=== PATIENT | female | born 1975 | race Caucasian/White ===

== ENCOUNTER 2017-05-22 17:32 | Emergency (ER) | payer MEDICAID ==
[~2017-05-22] VITALS: Ht 163.8 cm; Wt 130.9 kg
[~2017-05-22 17:32] MED LIST: ALPR-623 PO; BUPR150T8 PO; BUSP10TA11 PO; ESOM20CA PO; IBUP-1984 PO; LANS15CA15 PO; LISI-222 PO; METO-292 PO; NITR100C6 PO; NYSTATIN; ONDA4TAB59 PO; PHEN-873 PO; TRAM50TA2 PO; ZOF4T PO; ZOLP10TA5 PO; ZOLP5TAB8 PO
[2017-05-22 17:50] VITALS: BP 140/83
[2017-05-22] MEDS ORDERED: IBUP-1984 PO (18:42)
[2017-05-22] MEDS ORDERED: ibuprofen tablet 400 MG TABLET PO ONE (18:45)
== END 2017-05-22 19:13 | disposition home or self-care (01) ==
LOC: ER 17:32
DX: M23.8X1 Other internal derangements of right knee (principal); I10 Essential (primary) hypertension; K21.9 Gastro-esophageal reflux disease without esophagitis; G89.29 Other chronic pain; M54.9 Dorsalgia, unspecified; Z90.49 Acquired absence of other specified parts of digestive tract; Z98.890 Other specified postprocedural states; Z79.899 Other long term (current) drug therapy; Z88.8 Allergy status to other drugs, medicaments and biological substances; Z88.5 Allergy status to narcotic agent; Z88.0 Allergy status to penicillin; Z88.2 Allergy status to sulfonamides; Z88.6 Allergy status to analgesic agent; X50.1XXA Overexertion from prolonged static or awkward postures, initial encounter; Y93.01 Activity, walking, marching and hiking; Y92.89 Other specified places as the place of occurrence of the external cause; Y99.9 Unspecified external cause status
CPT/HCPCS: 29505; 73564; 99284; A6449

== ENCOUNTER 2017-06-09 14:14 | Outpatient (CLI) | payer MEDICAID ==
[~2017-06-09 14:14] MED LIST changes: +ONDA4TAB6 PO
[2017-06-09 14:16] VITALS: BP 127/76
== END 2017-06-09 15:11 | disposition home or self-care (01) ==
LOC: ORTHO 14:14
PROVIDERS: ATTEND Nurse Practitioner Family
DX: S89.91XA Unspecified injury of right lower leg, initial encounter (principal); F20.9 Schizophrenia, unspecified; F32.9 Major depressive disorder, single episode, unspecified; F41.9 Anxiety disorder, unspecified; G89.29 Other chronic pain; I10 Essential (primary) hypertension; K21.9 Gastro-esophageal reflux disease without esophagitis; Z88.0 Allergy status to penicillin; Z88.2 Allergy status to sulfonamides; Z88.5 Allergy status to narcotic agent; Z88.8 Allergy status to other drugs, medicaments and biological substances; Z90.49 Acquired absence of other specified parts of digestive tract; X58.XXXA Exposure to other specified factors, initial encounter; Y93.89 Activity, other specified; Y92.89 Other specified places as the place of occurrence of the external cause; Y99.8 Other external cause status
CPT/HCPCS: A4466

== ENCOUNTER 2017-09-23 14:21 | Outpatient (CLI) | payer MEDICAID ==
[2017-09-23 14:29] VITALS: BP 127/81
== END 2017-09-23 15:10 | disposition home or self-care (01) ==
LOC: ORTHO 14:21
PROVIDERS: ATTEND Nurse Practitioner Family
DX: S89.91XD Unspecified injury of right lower leg, subsequent encounter (principal); I10 Essential (primary) hypertension; K21.9 Gastro-esophageal reflux disease without esophagitis; F41.9 Anxiety disorder, unspecified; G89.29 Other chronic pain; F32.9 Major depressive disorder, single episode, unspecified; F41.0 Panic disorder [episodic paroxysmal anxiety]; F20.9 Schizophrenia, unspecified; Z88.0 Allergy status to penicillin; Z88.5 Allergy status to narcotic agent; Z88.2 Allergy status to sulfonamides; Z88.8 Allergy status to other drugs, medicaments and biological substances; Z56.0 Unemployment, unspecified; X58.XXXD Exposure to other specified factors, subsequent encounter
CPT/HCPCS: 99213

== ENCOUNTER 2017-10-12 16:29 | Emergency (ER) | payer MEDICAID ==
[~2017-10-12] VITALS: Ht 5367.7 cm; Wt 127.0 kg
[2017-10-12 17:29] LABS: ALANINE AMINOTRANSFERASE 37 U/L (12-78); ALBUMIN 3.6 G/DL (3.4-5.0); ALKALINE PHOSPHATASE 80 IU/L (46-116); ANION GAP 10 (8-16); ASPARTATE AMINO TRANSFERASE 28 U/L (10-37); BASOPHILS % (AUTO) 0.4 % (0-1); BILIRUBIN,TOTAL 0.5 MG/DL (0.1-1.0); BLOOD UREA NITROGEN 15 MG/DL (7-18); BUN/CREATININE RATIO 12.9 (6.6-38.0); CALCIUM 9.3 MG/DL (8.5-10.1); CHLORIDE 107 MMOL/L (99-107); CREATININE 1.16 MG/DL (0.40-0.90); EOSINOPHILS % (AUTO) 0.3 % (0-6); GLUCOSE 107 MG/DL (70-104); HEMATOCRIT 39.9 % (35.0-45.0); HEMOGLOBIN 14.1 g/dl (12.0-16.0); LYMPHOCYTES # (AUTO) 1.5 X10'3 (1.1-4.8); LYMPHOCYTES % (AUTO) 23.3 % (21-51); MEAN CORPUSCULAR HEMOGLOBIN 29.2 PG (27.0-31.0); MEAN CORPUSCULAR HGB CONC 35.4 % (33.0-36.5); MEAN CORPUSCULAR VOLUME 82.3 FL (78-98); MEAN PLATELET VOLUME 7.2 FL (7.4-10.4); MONOCYTES # (AUTO) 0.7 X10'3 (0-0.9); NEUTROPHILS # (AUTO) 4.4 X10'3 (1.8-7.7); PLATELET COUNT 300 X10'3 (140-440); POTASSIUM 3.8 MMOL/L (3.5-5.1); RED BLOOD COUNT 4.85 X10'6 (4.20-5.60); RED CELL DISTRIBUTION WIDTH 13.2 % (11.5-14.5); SODIUM 141 MMOL/L (135-145); TOTAL CARBON DIOXIDE 24.1 MMOL/L (24-32); TOTAL PROTEIN 7.1 G/DL (6.4-8.2); WHITE BLOOD COUNT 6.7 X10'3 (4.5-11.0); eGFR 51 ML/MIN
[2017-10-12] MEDS ORDERED: OLAN5TAB5 PO (17:29)
[2017-10-12] MEDS ORDERED: NORT25CA5 PO (17:29)
[2017-10-12] MEDS ORDERED: NAPR-56 PO (17:29)
[2017-10-12] MEDS ORDERED: LORA10TA7 PO (17:29)
[2017-10-12] MEDS ORDERED: FURO-150 PO (17:29)
[2017-10-12] MEDS ORDERED: DOCU-267 PO (17:29)
[2017-10-12] MEDS ORDERED: PANT40TA4 PO (17:29)
[2017-10-12 17:40] LABS: ETHANOL < 0.010 GM/DL (0.0-0.010)
[2017-10-12 19:14] LABS: URINE HCG NEGATIVE (NEG)
[2017-10-12 19:16] LABS: URINE AMPHETAMINE SCREEN NEGATIVE (Neg); URINE BARBITUATE SCREEN NEGATIVE (Neg); URINE BENZODIAZEPINES SCREEN POSITIVE (Neg); URINE CANNABINOID SCREEN NEGATIVE (Neg); URINE COCAINE SCREEN NEGATIVE (Neg); URINE METHADONE SCREEN NEGATIVE (Neg); URINE OPIATE SCREEN NEGATIVE (Neg); URINE PHENCYCLIDINE SCREEN NEGATIVE (Neg)
[2017-10-12] MEDS ORDERED: olanzapine 10mg tablet PO SCH (21:00)
[2017-10-12] MEDS ORDERED: OLAN20TA19 PO (21:07)
[2017-10-12] MEDS ORDERED: ZOLP10TA5 PO (21:07)
[2017-10-12] MEDS ORDERED: NAPR500T6 PO (21:07)
[2017-10-12] MEDS ORDERED: zolpidem 5mg tablet PO PRN ×2 (22:30)
[2017-10-12] MEDS ORDERED: diphenhydrAMINE 25mg capsule PO ONE (23:00)
[2017-10-12] MEDS ORDERED: dexamethasone 4mg tablet PO ONE (23:05)
[2017-10-13] MEDS ORDERED: ibuprofen 200mg tablet ONE (04:35)
[2017-10-13] MEDS ORDERED: naproxen 500mg tablet PO PRN (07:30)
[2017-10-13] MEDS ORDERED: loratadine 10mg tablet PO SCH (08:00)
[2017-10-13] MEDS ORDERED: lisinopril 10 MG tablet PO SCH (08:00)
[2017-10-13] MEDS ORDERED: pantoprazole 40mg Tablet.DR PO SCH (08:00)
[2017-10-13] MEDS ORDERED: ibuprofen 200mg tablet PO PRN (08:00)
[2017-10-13] MEDS ORDERED: furosemide 20MG tablet PO SCH (08:00)
[2017-10-13 15:23] VITALS: BP 115/71
[2017-10-13] MEDS ORDERED: nortriptyline 25mg capsule PO SCH (21:00)
[2017-10-13] MEDS ORDERED: docusate sod 100mg capsule PO SCH (21:00)
== END 2017-10-13 15:32 | disposition home or self-care (01) ==
LOC: ER 16:30
DX: F20.9 Schizophrenia, unspecified (principal); F41.9 Anxiety disorder, unspecified; F31.9 Bipolar disorder, unspecified; R45.851 Suicidal ideations; I10 Essential (primary) hypertension; K21.9 Gastro-esophageal reflux disease without esophagitis; G89.29 Other chronic pain; Z90.49 Acquired absence of other specified parts of digestive tract; Z98.890 Other specified postprocedural states; Z56.0 Unemployment, unspecified; Z88.5 Allergy status to narcotic agent; Z91.018 Allergy to other foods; Z88.2 Allergy status to sulfonamides; Z88.0 Allergy status to penicillin; Z88.8 Allergy status to other drugs, medicaments and biological substances; Z79.899 Other long term (current) drug therapy
CPT/HCPCS: 36415; 80053; 80305; 80320; 81025; 84443; 85025; 99284; J3490; J8540; Q0163

== ENCOUNTER 2018-07-20 06:18 | Emergency (ER) | payer MEDICAID ==
[~2018-07-20] VITALS: Ht 162.6 cm; Wt 133.9 kg
[~2018-07-20 06:18] MED LIST changes: -ALPR-623 PO; -BUPR150T8 PO; -BUSP10TA11 PO; +DOCU-267 PO; -ESOM20CA PO; +FURO-150 PO; -LANS15CA15 PO; +LORA10TA7 PO; -METO-292 PO; +NAPR500T6 PO; -NITR100C6 PO; +NORT25CA5 PO; -NYSTATIN; +OLAN20TA19 PO; -ONDA4TAB59 PO; -ONDA4TAB6 PO; +PANT40TA4 PO; -PHEN-873 PO; -TRAM50TA2 PO; -ZOF4T PO; -ZOLP5TAB8 PO
[2018-07-20 06:26] VITALS: BP 145/95
[2018-07-20] MEDS ORDERED: pseudoephedrine 30mg tablet PO ONE (06:50)
[2018-07-20] MEDS ORDERED: ondansetron 4mg rapidly disintigrating tab PO ONE (06:50)
[2018-07-20] MEDS ORDERED: ibuprofen 200mg tablet PO ONE (06:50)
[2018-07-20] MEDS ORDERED: pantoprazole 40mg Tablet.DR PO ONE (06:50)
[2018-07-20] MEDS ORDERED: benzonatate 100mg capsule PO ONE (07:05)
[2018-07-20] MEDS ORDERED: BENZ-16 PO (07:15)
== END 2018-07-20 07:36 | disposition home or self-care (01) ==
LOC: ER 06:18
DX: J06.9 Acute upper respiratory infection, unspecified (principal); I10 Essential (primary) hypertension; K21.9 Gastro-esophageal reflux disease without esophagitis; G89.29 Other chronic pain; M54.9 Dorsalgia, unspecified; Z90.49 Acquired absence of other specified parts of digestive tract; Z56.0 Unemployment, unspecified; Z88.6 Allergy status to analgesic agent; Z88.1 Allergy status to other antibiotic agents; Z88.0 Allergy status to penicillin; Z88.8 Allergy status to other drugs, medicaments and biological substances; Z91.018 Allergy to other foods
CPT/HCPCS: 71046; 87502; 87503; 99284

== ENCOUNTER 2019-01-08 16:50 | Emergency (ER) | payer MEDICAID ==
[~2019-01-08] VITALS: Ht 162.6 cm; Wt 135.0 kg
[2019-01-08 17:20] VITALS: BP 148/102
== END 2019-01-08 17:23 | disposition home or self-care (01) ==
LOC: ER 16:50
DX: S80.211A Abrasion, right knee, initial encounter (principal); K59.00 Constipation, unspecified; R21 Rash and other nonspecific skin eruption; I10 Essential (primary) hypertension; K21.9 Gastro-esophageal reflux disease without esophagitis; G89.29 Other chronic pain; F41.9 Anxiety disorder, unspecified; F31.9 Bipolar disorder, unspecified; F20.9 Schizophrenia, unspecified; F10.99 Alcohol use, unspecified with unspecified alcohol-induced disorder; Z90.49 Acquired absence of other specified parts of digestive tract; Z98.890 Other specified postprocedural states; Z56.0 Unemployment, unspecified; Z88.5 Allergy status to narcotic agent; Z88.0 Allergy status to penicillin; Z88.2 Allergy status to sulfonamides; Z88.8 Allergy status to other drugs, medicaments and biological substances; Z88.1 Allergy status to other antibiotic agents; Z91.018 Allergy to other foods; Z79.899 Other long term (current) drug therapy; X58.XXXA Exposure to other specified factors, initial encounter; Y93.89 Activity, other specified; Y92.89 Other specified places as the place of occurrence of the external cause; Y99.8 Other external cause status; Y90.9 Presence of alcohol in blood, level not specified
CPT/HCPCS: 99283

== ENCOUNTER 2019-03-22 09:29 | Emergency (ER) | payer MEDICAID ==
[~2019-03-22] VITALS: Ht 162.6 cm; Wt 132.9 kg
[2019-03-22] MEDS ORDERED: NORT25CA PO (10:05)
[2019-03-22] MEDS ORDERED: ONDA8TAB13 PO (10:05)
[2019-03-22] MEDS ORDERED: BUSP10TA11 PO (10:05)
[2019-03-22] MEDS ORDERED: CHLO25TA2 PO (10:05)
[2019-03-22] MEDS ORDERED: CLON-527 PO (10:06)
[2019-03-22] MEDS ORDERED: BUPR150T8 PO (10:06)
[2019-03-22] MEDS ORDERED: CHOL10002 PO (10:07)
[2019-03-22] MEDS ORDERED: ondansetron/PF 4mg/2ml inj IV ONE (10:30)
[2019-03-22] MEDS ORDERED: normal saline 1000ML IV soln IVB ONE (10:30)
[2019-03-22 10:50] LABS: BASOPHILS % (AUTO) 0.4 % (0-1); EOSINOPHILS % (AUTO) 0 % (0-6); HEMATOCRIT 42.1 % (35.0-45.0); HEMOGLOBIN 14.6 g/dl (12.0-16.0); LYMPHOCYTES # (AUTO) 1.2 X10'3 (1.1-4.8); LYMPHOCYTES % (AUTO) 16.4 % (21-51); MEAN CORPUSCULAR HEMOGLOBIN 29.1 PG (27.0-31.0); MEAN CORPUSCULAR HGB CONC 34.8 g/dL (33.0-36.5); MEAN CORPUSCULAR VOLUME 83.8 FL (78-98); MONOCYTES # (AUTO) 0.6 X10'3 (0-0.9); MONOCYTES % (AUTO) 8.6 % (2-12); NEUTROPHILS # (AUTO) 5.5 X10'3 (1.8-7.7); NEUTROPHILS % (AUTO) 74.6 % (42-75); PLATELET COUNT 292 X10'3 (140-440); RED BLOOD COUNT 5.02 X10'6 (4.20-5.60); RED CELL DISTRIBUTION WIDTH 13.3 % (11.5-14.5); WHITE BLOOD COUNT 7.4 X10'3 (4.5-11.0)
[2019-03-22 10:55] LABS: CLARITY,URINE CLEAR (Clear); COLOR,URINE YELLOW (Yellow); GLUCOSE, URINE NEGATIVE (Neg); KETONES,URINE NEGATIVE (Neg); LEUKOCYTE ESTERASE ,URINE NEGATIVE (Neg); NITRITES, URINE NEGATIVE (Neg); OCCULT BLOOD,URINE NEGATIVE (Neg); PH,URINE 7.5 (4.8-8.0); PROTEIN,URINE NEGATIVE (Neg); UROBILINOGEN,URINE 0.2 E.U/dL (0.2-1.0)
[2019-03-22 10:56] LABS: UA COLLECTION TYPE CLN CATCH MIDSTREAM
[2019-03-22 10:59] LABS: URINE HCG NEGATIVE (NEG)
[2019-03-22 11:04] LABS: ALANINE AMINOTRANSFERASE 71 U/L (12-78); ALBUMIN 3.7 G/DL (3.4-5.0); ALBUMIN/GLOBULIN RATIO 0.9 (1.1-1.5); ALKALINE PHOSPHATASE 126 IU/L (46-116); ANION GAP 8 (8-16); ASPARTATE AMINO TRANSFERASE 39 U/L (10-37); BILIRUBIN,TOTAL 0.4 MG/DL (0.1-1.0); BLOOD UREA NITROGEN 15 MG/DL (7-18); BUN/CREATININE RATIO 11.8 (6.6-38.0); CALCIUM 8.6 MG/DL (8.5-10.1); CHLORIDE 104 MMOL/L (99-107); CREATININE 1.27 MG/DL (0.40-0.90); GLUCOSE 116 MG/DL (70-104); POTASSIUM 3.9 MMOL/L (3.5-5.1); SODIUM 141 MMOL/L (135-145); TOTAL CARBON DIOXIDE 29.5 MMOL/L (24-32); TOTAL PROTEIN 7.6 G/DL (6.4-8.2); eGFR 46 ML/MIN
[2019-03-22 11:13] LABS: LIPASE 58 U/L (73-393)
[2019-03-22] MEDS ORDERED: ONDA4TAB12 PO (11:49)
[2019-03-22 12:40] VITALS: BP 148/89
== END 2019-03-22 12:43 | disposition home or self-care (01) ==
LOC: ER 09:29
DX: E86.0 Dehydration (principal); R07.89 Other chest pain; R11.2 Nausea with vomiting, unspecified; R30.0 Dysuria; R19.7 Diarrhea, unspecified; I10 Essential (primary) hypertension; K21.9 Gastro-esophageal reflux disease without esophagitis; G89.29 Other chronic pain; F41.9 Anxiety disorder, unspecified; F31.9 Bipolar disorder, unspecified; F20.9 Schizophrenia, unspecified; F10.99 Alcohol use, unspecified with unspecified alcohol-induced disorder; Z90.49 Acquired absence of other specified parts of digestive tract; Z98.890 Other specified postprocedural states; Z56.0 Unemployment, unspecified; Z88.5 Allergy status to narcotic agent; Z88.1 Allergy status to other antibiotic agents; Z88.0 Allergy status to penicillin; Z88.2 Allergy status to sulfonamides; Z88.8 Allergy status to other drugs, medicaments and biological substances; Z91.018 Allergy to other foods; Z79.899 Other long term (current) drug therapy; Y90.9 Presence of alcohol in blood, level not specified
CPT/HCPCS: 36415; 71045; 80053; 81003; 81025; 83690; 84484; 85025; 93005; 96361; 96374; 99284; J2405; J7030

== ENCOUNTER 2019-10-12 10:13 | Emergency (ER) | payer MEDICAID ==
[~2019-10-12] VITALS: Ht 162.6 cm; Wt 136.4 kg
[~2019-10-12 10:13] MED LIST changes: +BUPR150T8 PO; +BUSP10TA11 PO; +CHLO25TA2 PO; +CHOL10002 PO; +CLON-527 PO; -FURO-150 PO; -IBUP-1984 PO; -LISI-222 PO; -NAPR500T6 PO; +NORT25CA PO; -NORT25CA5 PO; +ONDA4TAB12 PO; +ONDA8TAB13 PO; -ZOLP10TA5 PO
[2019-10-12 10:25] VITALS: BP 123/80
[2019-10-12 10:54] LABS: CLARITY,URINE CLEAR (Clear); COLOR,URINE STRAW (Yellow); GLUCOSE, URINE NEGATIVE (Neg); KETONES,URINE NEGATIVE (Neg); LEUKOCYTE ESTERASE ,URINE NEGATIVE (Neg); NITRITES, URINE NEGATIVE (Neg); OCCULT BLOOD,URINE NEGATIVE (Neg); PROTEIN,URINE NEGATIVE (Neg); URINE HCG NEGATIVE (NEG); UROBILINOGEN,URINE 0.2 E.U/dL (0.2-1.0)
[2019-10-12 10:58] LABS: UA COLLECTION TYPE CLN CATCH MIDSTREAM
[2019-10-12] MEDS ORDERED: FLUT16SP2 BOTHNARES (15:04)
[2019-10-12] MEDS ORDERED: FLUC150T PO (15:04)
[2019-10-23] MEDS ORDERED: MELA5TAB12 PO (14:58)
[2019-10-23] MEDS ORDERED: VITA80008 PO (14:58)
[2019-10-23] MEDS ORDERED: LISI40TA4 PO (14:58)
[2019-10-23] MEDS ORDERED: PHYT500T PO (14:58)
== END 2019-10-12 15:23 | disposition home or self-care (01) ==
LOC: ER 10:13
DX: N89.8 Other specified noninflammatory disorders of vagina (principal); H92.02 Otalgia, left ear; R30.0 Dysuria; I10 Essential (primary) hypertension; K21.9 Gastro-esophageal reflux disease without esophagitis; G89.29 Other chronic pain; F41.9 Anxiety disorder, unspecified; F31.9 Bipolar disorder, unspecified; F20.9 Schizophrenia, unspecified; Z90.49 Acquired absence of other specified parts of digestive tract; Z98.890 Other specified postprocedural states; Z72.89 Other problems related to lifestyle; Z88.8 Allergy status to other drugs, medicaments and biological substances; Z88.5 Allergy status to narcotic agent; Z88.0 Allergy status to penicillin; Z88.2 Allergy status to sulfonamides; Z91.018 Allergy to other foods; Z79.899 Other long term (current) drug therapy
CPT/HCPCS: 81003; 81025; 87210; 99283

== ENCOUNTER 2019-10-27 05:31 | Day surgery (SDC) | payer MEDICAID ==
[2019-10-23 15:15] LABS: BASOPHILS # (AUTO) 0.1 X10'3 (0-0.2); BASOPHILS % (AUTO) 0.6 % (0-1); EOSINOPHILS % (AUTO) 0 % (0-6); LYMPHOCYTES # (AUTO) 1.8 X10'3 (1.1-4.8); MEAN CORPUSCULAR HEMOGLOBIN 29.4 PG (27.0-31.0); MEAN CORPUSCULAR HGB CONC 34.1 g/dL (33.0-36.5); MEAN CORPUSCULAR VOLUME 86.4 FL (78-98); MEAN PLATELET VOLUME 7.2 FL (7.4-10.4); MONOCYTES # (AUTO) 0.8 X10'3 (0-0.9); MONOCYTES % (AUTO) 8.9 % (2-12); NEUTROPHILS # (AUTO) 5.9 X10'3 (1.8-7.7); NEUTROPHILS % (AUTO) 69.5 % (42-75); PRE OP HEMATOCRIT 40.8 % (35.0-45.0); PRE OP HEMOGLOBIN 13.9 g/dL (12.0-16.0); PRE OP PLATELET COUNT 283 X10'3 (140-440); RED BLOOD COUNT 4.72 X10'6 (4.20-5.60); RED CELL DISTRIBUTION WIDTH 13.2 % (11.5-14.5)
[2019-10-23 15:30] LABS: ALBUMIN 3.8 G/DL (3.4-5.0); ALBUMIN/GLOBULIN RATIO 1.1 (1.1-1.5); ALKALINE PHOSPHATASE 89 IU/L (46-116); BLOOD UREA NITROGEN 20 MG/DL (7-18); BUN/CREATININE RATIO 17.4 (6.6-38.0); CALCIUM 8.6 MG/DL (8.5-10.1); CHLORIDE 107 MMOL/L (99-107); CREATININE 1.15 MG/DL (0.40-0.90); PRE OP ALT 31 U/L (30-65); PRE OP ANION GAP 8 (8-16); PRE OP AST 17 U/L (10-37); PRE OP BILIRUB, TOTAL 0.2 MG/DL (0.0-1.0); PRE OP GLUCOSE 89 MG/DL (70-104); PRE OP POTASSIUM 4.2 MMOL/L (3.4-5.1); PRE OP SODIUM 142 MMOL/L (135-145); TOTAL CARBON DIOXIDE 27.5 MMOL/L (24-32); TOTAL PROTEIN 7.2 G/DL (6.4-8.2); eGFR 51 ML/MIN
[2019-10-23 16:18] LABS: HCG SERUM QL NEGATIVE
[~2019-10-27] VITALS: Ht 162.6 cm; Wt 137.8 kg
[~2019-10-27 05:31] MED LIST changes: -CHLO25TA2 PO; +LISI40TA4 PO; +MELA5TAB12 PO; -ONDA4TAB12 PO; +PHYT500T PO; +VITA80008 PO; +famotidine 20mg tablet PO ONE; +ringers solution, lacted 1,000 ML IV SCH
[2019-10-27] MEDS ORDERED: ondansetron/PF 4mg/2ml inj IV PRN (07:20)
[2019-10-27] MEDS ORDERED: HYDROmorphone inj. 0.5 MG/0.5 ML DISP.SYRIN IV PRN ×2 (07:20)
[2019-10-27] MEDS ORDERED: meperidine/PF 25mg/ml syringe IV PRN ×2 (07:20)
[2019-10-27] MEDS ORDERED: ringers solution, lacted 1,000 ML IV SCH (07:20)
[2019-10-27 08:24] VITALS: BP 158/62
[2019-10-27 08:27] VITALS: BP 158/62
[2019-10-27] MEDS ORDERED: fentaNYL/PF 50MCG/1 ML 2ML syringe ONE (08:48)
[2019-10-27] MEDS ORDERED: midazolam 2 mg/2 ml injection ONE (08:48)
[2019-10-27] MEDS ORDERED: propofol inj 20 ML IV ONE (08:49)
[2019-10-27] MEDS ORDERED: neostigmine methylsulfate 1 MG/ML 10ml vial ONE ×2 (08:52→09:33)
[2019-10-27] MEDS ORDERED: dexamethasone sod phosphate 10mg/ml inj ONE (08:52)
[2019-10-27] MEDS ORDERED: sevoflurane 250ml liquid IH ONE (08:52)
[2019-10-27] MEDS ORDERED: glycopyrrolate 0.2mg/ml inj ONE (09:33)
[2019-10-27] MEDS ORDERED: ondansetron/PF 4mg/2ml inj ONE (09:33)
[2019-10-27] MEDS ORDERED: rocuronium 10mg/ml inj IV ONE (09:33)
[2019-10-27 09:48] VITALS: BP 120/65
--- NOTE | 2019-10-27 09:48 | NUR ---
Received from OR via BED , accompanied by Anesthesiologist DR RAMOS and report given by Anesthesiolgist. PATIENT WAKING UP, DENIES PAIN, V/S WNL, NEUROVASCULAR CHECKS INTACT, 20G PIV right AC, SCD ON, DERMABONDED TO LAP SITES x1 OF ABDOMEN AND WITH PERIPAD WITH SCANT DRAINAGE CDI.
[2019-10-27 09:58] VITALS: BP 130/75
[2019-10-27 10:08] VITALS: BP 126/80
[2019-10-27 10:18] VITALS: BP 140/71
--- NOTE | 2019-10-27 10:28 | NUR ---
PATIENT A&OX4, DENIES PAIN, V/S WNL, NEUROVASCULAR CHECKS INTACT, 20G PIV LUE D/C WITH NO COMPLICATIONS OBSERVED, SCD OFF, BANDAID TO LAP SIGHTS OF ABDOMEN CDI. FRESH ERAN PAD GIVEN TO PATIENT. I HAVE REVIEWED D/C INSTRUCTIONS WITH PATIENT AND FAMILY OVER PHONE AND THEY HAVE VERBALIZED UNDERSTANDING. PATIENT D/C HOME WITH FAMILY TO TRANSPORT AND ALL BELONGINGS. PAIN MEDS CALLED INTO PHARMACY.
== END 2019-10-27 10:28 | disposition home or self-care (01) ==
LOC: PAS 05:31
PROVIDERS: ATTEND Obstetrics & Gynecology
DX: Z30.2 Encounter for sterilization (principal); I10 Essential (primary) hypertension; F20.9 Schizophrenia, unspecified; F31.9 Bipolar disorder, unspecified; K21.9 Gastro-esophageal reflux disease without esophagitis; E66.9 Obesity, unspecified; Z68.43 Body mass index [BMI] 50.0-59.9, adult; Z88.5 Allergy status to narcotic agent; Z88.8 Allergy status to other drugs, medicaments and biological substances; Z88.0 Allergy status to penicillin; Z90.49 Acquired absence of other specified parts of digestive tract; Z98.890 Other specified postprocedural states; Z79.899 Other long term (current) drug therapy; Z11.59 Encounter for screening for other viral diseases
CPT/HCPCS: 36415; 58670; 80053; 82948; 84703; 85025; 93005; J1100; J2250; J2405; J2704; J2710; J3010; U0003; A4618; J3490; J7120

== ENCOUNTER 2019-11-05 08:21 | Emergency (ER) | payer MEDICAID ==
[~2019-11-05] VITALS: Ht 165.1 cm; Wt 114.9 kg
[~2019-11-05 08:21] MED LIST changes: -famotidine 20mg tablet PO ONE; -ringers solution, lacted 1,000 ML IV SCH
[2019-11-05] MEDS ORDERED: metoclopramide 5 mg/ml inj IV ONE (08:45)
[2019-11-05] MEDS ORDERED: normal saline 1000ML IV soln IVB ONE (08:45)
[2019-11-05] MEDS ORDERED: diphenhydrAMINE 50 mg/ml inj IV ONE (08:45)
[2019-11-05 09:10] LABS: BASOPHILS % (AUTO) 0.4 % (0-1); EOSINOPHILS % (AUTO) 0 % (0-6); HEMATOCRIT 41.8 % (35.0-45.0); HEMOGLOBIN 14.4 g/dl (12.0-16.0); LYMPHOCYTES # (AUTO) 1.3 X10'3 (1.1-4.8); MEAN CORPUSCULAR HGB CONC 34.6 g/dL (33.0-36.5); MEAN CORPUSCULAR VOLUME 86.9 FL (78-98); MONOCYTES # (AUTO) 0.7 X10'3 (0-0.9); MONOCYTES % (AUTO) 7.5 % (2-12); NEUTROPHILS # (AUTO) 6.7 X10'3 (1.8-7.7); NEUTROPHILS % (AUTO) 77.1 % (42-75); PLATELET COUNT 268 X10'3 (140-440); RED BLOOD COUNT 4.81 X10'6 (4.20-5.60); RED CELL DISTRIBUTION WIDTH 13.1 % (11.5-14.5); WHITE BLOOD COUNT 8.7 X10'3 (4.5-11.0)
[2019-11-05 09:22] LABS: ALANINE AMINOTRANSFERASE 70 U/L (12-78); ALBUMIN 3.7 G/DL (3.4-5.0); ALKALINE PHOSPHATASE 125 IU/L (46-116); ANION GAP 9 (8-16); ASPARTATE AMINO TRANSFERASE 32 U/L (10-37); BILIRUBIN,TOTAL 0.4 MG/DL (0.1-1.0); BLOOD UREA NITROGEN 24 MG/DL (7-18); BUN/CREATININE RATIO 19.4 (6.6-38.0); CALCIUM 8.8 MG/DL (8.5-10.1); CHLORIDE 106 MMOL/L (99-107); CREATININE 1.24 MG/DL (0.40-0.90); GLUCOSE 95 MG/DL (70-104); SODIUM 141 MMOL/L (135-145); TOTAL CARBON DIOXIDE 26.2 MMOL/L (24-32); TOTAL PROTEIN 7.4 G/DL (6.4-8.2); eGFR 47 ML/MIN
[2019-11-05 10:14] LABS: CLARITY,URINE SLIGHTLY CLOUDY (Clear); COLOR,URINE STRAW (Yellow); GLUCOSE, URINE NEGATIVE (Neg); KETONES,URINE NEGATIVE (Neg); LEUKOCYTE ESTERASE ,URINE NEGATIVE (Neg); NITRITES, URINE NEGATIVE (Neg); OCCULT BLOOD,URINE LARGE (Neg); PROTEIN,URINE NEGATIVE (Neg); UROBILINOGEN,URINE 0.2 E.U/dL (0.2-1.0)
[2019-11-05 10:17] LABS: UA COLLECTION TYPE CLN CATCH MIDSTREAM
[2019-11-05 10:20] LABS: BACTERIA,URINE FEW /HPF (Neg); MUCUS STRANDS FEW /LPF (Neg); RBC,URINE 0-2 /HPF (0-2); SQUAMOUS EPITHELIAL CELL,UR FEW /LPF (FEW); WBC,URINE 0-4 /HPF (0-4)
[2019-11-05 10:45] VITALS: BP 130/85
== END 2019-11-05 10:43 | disposition home or self-care (01) ==
LOC: ER 08:22
DX: R11.2 Nausea with vomiting, unspecified (principal); E86.0 Dehydration; I10 Essential (primary) hypertension; K21.9 Gastro-esophageal reflux disease without esophagitis; G89.29 Other chronic pain; F41.9 Anxiety disorder, unspecified; F31.9 Bipolar disorder, unspecified; F20.9 Schizophrenia, unspecified; Z98.51 Tubal ligation status; Z87.440 Personal history of urinary (tract) infections; Z90.49 Acquired absence of other specified parts of digestive tract; Z98.890 Other specified postprocedural states; Z72.89 Other problems related to lifestyle; Z56.0 Unemployment, unspecified; Z88.6 Allergy status to analgesic agent; Z88.5 Allergy status to narcotic agent; Z88.0 Allergy status to penicillin; Z88.2 Allergy status to sulfonamides; Z88.8 Allergy status to other drugs, medicaments and biological substances; Z79.899 Other long term (current) drug therapy
CPT/HCPCS: 36415; 80053; 81001; 84145; 85025; 96361; 96374; 96375; 99284; J1200; J2765; J7030

== ENCOUNTER 2020-01-22 04:19 | Emergency (ER) | payer MEDICAID ==
[~2020-01-22] VITALS: Ht 162.6 cm; Wt 141.8 kg
[2020-01-22 04:22] VITALS: BP 145/95
[2020-01-22] MEDS ORDERED: ketorolac trometh inj. 60 MG/2 ML VIAL IM ONE (04:40)
[2020-01-22 05:06] LABS: CLARITY,URINE CLEAR (Clear); COLOR,URINE YELLOW (Yellow); GLUCOSE, URINE NEGATIVE (Neg); KETONES,URINE NEGATIVE (Neg); LEUKOCYTE ESTERASE ,URINE SMALL (Neg); NITRITES, URINE NEGATIVE (Neg); OCCULT BLOOD,URINE NEGATIVE (Neg); PROTEIN,URINE NEGATIVE (Neg); UROBILINOGEN,URINE 0.2 E.U/dL (0.2-1.0)
[2020-01-22 05:18] LABS: UA COLLECTION TYPE CLN CATCH MIDSTREAM
[2020-01-22] MEDS ORDERED: ACYC-202 PO (05:21)
[2020-01-22] MEDS ORDERED: NITR100C6 PO (05:21)
[2020-01-22 05:27] LABS: BACTERIA,URINE FEW /HPF (Neg); MUCUS STRANDS FEW /LPF (Neg); RBC,URINE NONE SEEN /HPF (0-2); SQUAMOUS EPITHELIAL CELL,UR FEW /LPF (FEW)
== END 2020-01-22 05:31 | disposition home or self-care (01) ==
LOC: ER 04:20
DX: N39.0 Urinary tract infection, site not specified (principal); M54.5 Low back pain; I10 Essential (primary) hypertension; K21.9 Gastro-esophageal reflux disease without esophagitis; G89.29 Other chronic pain; F41.9 Anxiety disorder, unspecified; F31.9 Bipolar disorder, unspecified; F20.9 Schizophrenia, unspecified; Z90.49 Acquired absence of other specified parts of digestive tract; Z72.89 Other problems related to lifestyle; Z56.0 Unemployment, unspecified; Z88.8 Allergy status to other drugs, medicaments and biological substances; Z88.5 Allergy status to narcotic agent; Z79.899 Other long term (current) drug therapy
CPT/HCPCS: 81001; 87088; 96372; 99283; J1885

== ENCOUNTER 2020-02-02 03:37 | Emergency (ER) | payer MEDICAID ==
[~2020-02-02] VITALS: Ht 162.6 cm; Wt 139.6 kg
[~2020-02-02 03:37] MED LIST changes: +ACYC-202 PO; +NITR100C6 PO; -PANT40TA4 PO; +PANT40TA54 PO
[2020-02-02] MEDS ORDERED: normal saline 1000ML IV soln IVB ONE (04:15)
[2020-02-02] MEDS ORDERED: ondansetron/PF 4mg/2ml inj IV ONE ×2 (04:15→05:35)
[2020-02-02] MEDS ORDERED: sucralfate 1gm/10ml UD suspension PO STA (04:21)
[2020-02-02] MEDS ORDERED: mag hydrox/Alum hydrox/simeth 30ml oral suspension PO ONE (04:25)
[2020-02-02] MEDS ORDERED: LIDOcaine Viscous 15ml cup MM ONE (04:25)
[2020-02-02 04:41] LABS: BASOPHILS % (AUTO) 0.4 % (0-1); EOSINOPHILS % (AUTO) 0.1 % (0-6); HEMATOCRIT 39.3 % (35.0-45.0); HEMOGLOBIN 13.4 g/dl (12.0-16.0); LYMPHOCYTES # (AUTO) 1.6 X10'3 (1.1-4.8); LYMPHOCYTES % (AUTO) 23.1 % (21-51); MEAN CORPUSCULAR HEMOGLOBIN 29.6 PG (27.0-31.0); MEAN CORPUSCULAR HGB CONC 34.1 g/dL (33.0-36.5); MEAN CORPUSCULAR VOLUME 86.9 FL (78-98); MEAN PLATELET VOLUME 6.8 FL (7.4-10.4); MONOCYTES # (AUTO) 0.6 X10'3 (0-0.9); MONOCYTES % (AUTO) 9.3 % (2-12); NEUTROPHILS # (AUTO) 4.5 X10'3 (1.8-7.7); NEUTROPHILS % (AUTO) 67.1 % (42-75); PLATELET COUNT 246 X10'3 (140-440); RED BLOOD COUNT 4.52 X10'6 (4.20-5.60); RED CELL DISTRIBUTION WIDTH 13.6 % (11.5-14.5); WHITE BLOOD COUNT 6.8 X10'3 (4.5-11.0)
[2020-02-02 04:41] LABS: CLARITY,URINE SLIGHTLY CLOUDY (Clear); COLOR,URINE YELLOW (Yellow); GLUCOSE, URINE NEGATIVE (Neg); KETONES,URINE NEGATIVE (Neg); LEUKOCYTE ESTERASE ,URINE TRACE (Neg); NITRITES, URINE NEGATIVE (Neg); OCCULT BLOOD,URINE LARGE (Neg); PROTEIN,URINE NEGATIVE (Neg); UROBILINOGEN,URINE 0.2 E.U/dL (0.2-1.0)
[2020-02-02 04:42] LABS: UA COLLECTION TYPE CLN CATCH MIDSTREAM; URINE HCG NEGATIVE (NEG)
[2020-02-02 04:48] LABS: BACTERIA,URINE 2+ /HPF (Neg); RBC,URINE 0-2 /HPF (0-2); SQUAMOUS EPITHELIAL CELL,UR MODERATE /LPF (FEW); WBC,URINE 0-4 /HPF (0-4)
[2020-02-02 04:55] LABS: ALANINE AMINOTRANSFERASE 28 U/L (12-78); ALBUMIN 3.5 G/DL (3.4-5.0); ALBUMIN/GLOBULIN RATIO 1.1 (1.1-1.5); ALKALINE PHOSPHATASE 79 IU/L (46-116); ANION GAP 9 (8-16); ASPARTATE AMINO TRANSFERASE 15 U/L (10-37); BILIRUBIN,TOTAL 0.5 MG/DL (0.1-1.0); BLOOD UREA NITROGEN 17 MG/DL (7-18); BUN/CREATININE RATIO 14.9 (6.6-38.0); CHLORIDE 107 MMOL/L (99-107); CREATININE 1.14 MG/DL (0.40-0.90); GLUCOSE 109 MG/DL (70-104); LIPASE 88 U/L (73-393); POTASSIUM 3.7 MMOL/L (3.5-5.1); SODIUM 139 MMOL/L (135-145); TOTAL CARBON DIOXIDE 23.5 MMOL/L (24-32); TOTAL PROTEIN 6.6 G/DL (6.4-8.2); eGFR 52 ML/MIN
--- NOTE | 2020-02-02 04:59 | NUR ---
PT MOTHER CAN BE REACHED AT [phone] ABHINAV. IS KAYLEY
--- NOTE | 2020-02-02 05:15 | NUR ---
PT HAVING A " TERETS, EPISODE SHE STATED AND WAS VERY ANXIOUS . TALKED PT THROUGH HER EPISODE WITH ENCOURAGING DEEP SLOW BREATHS . PT WAS ABLE TO EFFECTIVLY COPE . MD VALENZUELA AND INTERIN AWARE . PT MAINTAINED O2 SATS AT 100 % THE ENTIRE EPISODE AND HAD AN INCREASE IN HEART RATE FROM 88- 100 . PT DOES NOT PRESENT WITH ANY ALLERGICE REACTIONS AT THE MOMENT . NO RASH , NO SOB , NO TONGUE SWELLING .
--- NOTE | 2020-02-02 05:39 | NUR ---
PT HAVING EMESIS . MEDICATED WITH ZOFRAN RELIEF MET
[2020-02-02] MEDS ORDERED: ONDA4TAB6 PO (05:46)
[2020-02-02 06:00] VITALS: BP 148/82
== END 2020-02-02 06:05 | disposition home or self-care (01) ==
LOC: ER 03:38
DX: R10.11 Right upper quadrant pain (principal); R11.2 Nausea with vomiting, unspecified; I10 Essential (primary) hypertension; K21.9 Gastro-esophageal reflux disease without esophagitis; G89.29 Other chronic pain; F41.9 Anxiety disorder, unspecified; F31.9 Bipolar disorder, unspecified; F20.9 Schizophrenia, unspecified; Z90.49 Acquired absence of other specified parts of digestive tract; Z72.89 Other problems related to lifestyle; Z56.0 Unemployment, unspecified; Z88.8 Allergy status to other drugs, medicaments and biological substances; Z88.2 Allergy status to sulfonamides; Z88.0 Allergy status to penicillin; Z88.5 Allergy status to narcotic agent; Z88.1 Allergy status to other antibiotic agents; Z79.899 Other long term (current) drug therapy
CPT/HCPCS: 36415; 80053; 81001; 81025; 83690; 85025; 87088; 96361; 96374; 96375; 99284; J2405; J7030

== ENCOUNTER 2020-06-05 08:26 | Emergency (ER) | payer MEDICAID ==
[~2020-06-05] VITALS: Ht 162.6 cm; Wt 142.9 kg
[~2020-06-05 08:26] MED LIST changes: -ACYC-202 PO; +ONDA4TAB6 PO
[2020-06-05 09:12] LABS: BASOPHILS % (AUTO) 0.6 % (0-1); EOSINOPHILS % (AUTO) 0.1 % (0-6); HEMATOCRIT 40.1 % (35.0-45.0); HEMOGLOBIN 13.6 g/dl (12.0-16.0); LYMPHOCYTES # (AUTO) 1.2 X10'3 (1.1-4.8); LYMPHOCYTES % (AUTO) 19.8 % (21-51); MEAN CORPUSCULAR HEMOGLOBIN 29.2 PG (27.0-31.0); MEAN CORPUSCULAR HGB CONC 33.9 g/dL (33.0-36.5); MEAN CORPUSCULAR VOLUME 86.1 FL (78-98); MEAN PLATELET VOLUME 7.2 FL (7.4-10.4); MONOCYTES # (AUTO) 0.6 X10'3 (0-0.9); MONOCYTES % (AUTO) 9.4 % (2-12); NEUTROPHILS # (AUTO) 4.2 X10'3 (1.8-7.7); NEUTROPHILS % (AUTO) 70.1 % (42-75); PLATELET COUNT 278 X10'3 (140-440); RED BLOOD COUNT 4.66 X10'6 (4.20-5.60); RED CELL DISTRIBUTION WIDTH 13.5 % (11.5-14.5)
[2020-06-05] MEDS ORDERED: normal saline 1000ML IV soln IVB ONE (09:15)
[2020-06-05] MEDS ORDERED: fentaNYL/PF 50MCG/1 ML 2ML syringe IV ONE (09:15)
[2020-06-05] MEDS ORDERED: ondansetron/PF 4mg/2ml inj IV ONE (09:15)
[2020-06-05] MEDS ORDERED: mag hydrox/Alum hydrox/simeth 30ml oral suspension PO ONE (09:15)
[2020-06-05 09:32] LABS: ALANINE AMINOTRANSFERASE 34 U/L (12-78); ALBUMIN 3.5 G/DL (3.4-5.0); ALBUMIN/GLOBULIN RATIO 1.1 (1.1-1.5); ALKALINE PHOSPHATASE 92 IU/L (46-116); AMYLASE 31 U/L (25-115); ANION GAP 9 (8-16); ASPARTATE AMINO TRANSFERASE 20 U/L (10-37); BILIRUBIN,TOTAL 0.4 MG/DL (0.1-1.0); BLOOD UREA NITROGEN 24 MG/DL (7-18); BUN/CREATININE RATIO 20.5 (6.6-38.0); CALCIUM 8.3 MG/DL (8.5-10.1); CHLORIDE 110 MMOL/L (99-107); CREATININE 1.17 MG/DL (0.40-0.90); GLUCOSE 119 MG/DL (70-104); LIPASE 55 U/L (73-393); POTASSIUM 4.4 MMOL/L (3.5-5.1); SODIUM 143 MMOL/L (135-145); TOTAL CARBON DIOXIDE 24.5 MMOL/L (24-32); TOTAL PROTEIN 6.8 G/DL (6.4-8.2); eGFR 50 ML/MIN
[2020-06-05 10:15] VITALS: BP 138/62
[2020-06-05 10:29] LABS: CLARITY,URINE CLEAR (Clear); COLOR,URINE YELLOW (Yellow); GLUCOSE, URINE NEGATIVE (Neg); KETONES,URINE NEGATIVE (Neg); LEUKOCYTE ESTERASE ,URINE NEGATIVE (Neg); NITRITES, URINE NEGATIVE (Neg); OCCULT BLOOD,URINE NEGATIVE (Neg); PROTEIN,URINE NEGATIVE (Neg); UROBILINOGEN,URINE 0.2 E.U/dL (0.2-1.0)
[2020-06-05 10:30] LABS: UA COLLECTION TYPE CLN CATCH MIDSTREAM
[2020-06-05 10:32] LABS: URINE HCG NEGATIVE (NEG)
== END 2020-06-05 10:24 | disposition home or self-care (01) ==
LOC: ER 08:27
DX: R10.84 Generalized abdominal pain (principal); R11.2 Nausea with vomiting, unspecified; I10 Essential (primary) hypertension; K21.9 Gastro-esophageal reflux disease without esophagitis; G89.29 Other chronic pain; F41.9 Anxiety disorder, unspecified; F31.9 Bipolar disorder, unspecified; F20.9 Schizophrenia, unspecified; Z87.440 Personal history of urinary (tract) infections; Z90.49 Acquired absence of other specified parts of digestive tract; Z98.890 Other specified postprocedural states; Z72.89 Other problems related to lifestyle; Z56.0 Unemployment, unspecified; Z88.5 Allergy status to narcotic agent; Z88.1 Allergy status to other antibiotic agents; Z88.2 Allergy status to sulfonamides; Z88.8 Allergy status to other drugs, medicaments and biological substances; Z79.899 Other long term (current) drug therapy
CPT/HCPCS: 36415; 80053; 81003; 81025; 82150; 83690; 85025; 96374; 96375; 99284; J2405; J3010; J7030; 96361

== ENCOUNTER 2020-06-06 23:23 | Emergency (ER) | payer MEDICAID ==
[~2020-06-06] VITALS: Ht 162.6 cm; Wt 145.4 kg
[2020-06-06 23:26] VITALS: BP 127/64
[2020-06-07] MEDS ORDERED: ondansetron 4mg rapidly disintigrating tab PO ONE (00:20)
[2020-06-07] MEDS ORDERED: mag hydrox/Alum hydrox/simeth 30ml oral suspension PO ONE (00:20)
[2020-06-07] MEDS ORDERED: LIDOcaine Viscous 15ml cup TP ONE (00:20)
[2020-06-07] MEDS ORDERED: ketorolac trometh inj. 60 MG/2 ML VIAL IM ONE (00:20)
== END 2020-06-07 00:51 | disposition home or self-care (01) ==
LOC: ER 23:23
DX: K52.9 Noninfective gastroenteritis and colitis, unspecified (principal); K44.9 Diaphragmatic hernia without obstruction or gangrene; R10.10 Upper abdominal pain, unspecified; R11.2 Nausea with vomiting, unspecified; R19.7 Diarrhea, unspecified; I10 Essential (primary) hypertension; K21.9 Gastro-esophageal reflux disease without esophagitis; G89.29 Other chronic pain; F41.9 Anxiety disorder, unspecified; F31.9 Bipolar disorder, unspecified; F20.9 Schizophrenia, unspecified; Z87.440 Personal history of urinary (tract) infections; Z90.49 Acquired absence of other specified parts of digestive tract; Z98.890 Other specified postprocedural states; Z72.89 Other problems related to lifestyle; Z56.0 Unemployment, unspecified; Z88.5 Allergy status to narcotic agent; Z88.1 Allergy status to other antibiotic agents; Z88.2 Allergy status to sulfonamides; Z88.8 Allergy status to other drugs, medicaments and biological substances; Z88.6 Allergy status to analgesic agent; Z91.018 Allergy to other foods; Z79.899 Other long term (current) drug therapy
CPT/HCPCS: 96372; 99284; J1885

== ENCOUNTER 2020-06-22 12:41 | Emergency (ER) | payer MEDICAID ==
[~2020-06-22] VITALS: Ht 162.6 cm; Wt 142.0 kg
[2020-06-22 13:29] LABS: BASOPHILS % (AUTO) 0.5 % (0-1); EOSINOPHILS % (AUTO) 0 % (0-6); HEMATOCRIT 40.9 % (35.0-45.0); HEMOGLOBIN 14.2 g/dl (12.0-16.0); LYMPHOCYTES # (AUTO) 1.7 X10'3 (1.1-4.8); LYMPHOCYTES % (AUTO) 21.9 % (21-51); MEAN CORPUSCULAR HEMOGLOBIN 29.7 PG (27.0-31.0); MEAN CORPUSCULAR HGB CONC 34.6 g/dL (33.0-36.5); MEAN CORPUSCULAR VOLUME 85.8 FL (78-98); MEAN PLATELET VOLUME 7.2 FL (7.4-10.4); MONOCYTES # (AUTO) 0.8 X10'3 (0-0.9); MONOCYTES % (AUTO) 10.8 % (2-12); NEUTROPHILS % (AUTO) 66.8 % (42-75); PLATELET COUNT 308 X10'3 (140-440); RED BLOOD COUNT 4.77 X10'6 (4.20-5.60); RED CELL DISTRIBUTION WIDTH 13.2 % (11.5-14.5); WHITE BLOOD COUNT 7.5 X10'3 (4.5-11.0)
[2020-06-22 13:42] LABS: ALANINE AMINOTRANSFERASE 59 U/L (12-78); ALBUMIN 3.8 G/DL (3.4-5.0); ALKALINE PHOSPHATASE 111 IU/L (46-116); ANION GAP 7 (8-16); ASPARTATE AMINO TRANSFERASE 21 U/L (10-37); BILIRUBIN,TOTAL 0.4 MG/DL (0.1-1.0); BLOOD UREA NITROGEN 15 MG/DL (7-18); BUN/CREATININE RATIO 10.9 (6.6-38.0); CALCIUM 8.5 MG/DL (8.5-10.1); CHLORIDE 107 MMOL/L (99-107); CREATININE 1.38 MG/DL (0.40-0.90); GLUCOSE 104 MG/DL (70-104); LIPASE 53 U/L (73-393); POTASSIUM 4.4 MMOL/L (3.5-5.1); SODIUM 140 MMOL/L (135-145); TOTAL CARBON DIOXIDE 25.7 MMOL/L (24-32); TOTAL PROTEIN 7.5 G/DL (6.4-8.2); eGFR 41 ML/MIN
[2020-06-22 13:48] LABS: CLARITY,URINE CLEAR (Clear); COLOR,URINE STRAW (Yellow); GLUCOSE, URINE NEGATIVE (Neg); KETONES,URINE NEGATIVE (Neg); LEUKOCYTE ESTERASE ,URINE NEGATIVE (Neg); NITRITES, URINE NEGATIVE (Neg); OCCULT BLOOD,URINE MODERATE (Neg); PROTEIN,URINE NEGATIVE (Neg); UROBILINOGEN,URINE 0.2 E.U/dL (0.2-1.0)
[2020-06-22 13:49] LABS: UA COLLECTION TYPE CLN CATCH MIDSTREAM; URINE HCG NEGATIVE (NEG)
[2020-06-22 13:53] LABS: BACTERIA,URINE NONE SEEN /HPF (Neg); MUCUS STRANDS NONE SEEN /LPF (Neg); RBC,URINE 0-2 /HPF (0-2); SQUAMOUS EPITHELIAL CELL,UR FEW /LPF (FEW); WBC,URINE NONE SEEN /HPF (0-4)
[2020-06-22 14:03] VITALS: BP 120/71
== END 2020-06-22 14:00 | disposition home or self-care (01) ==
LOC: ER 12:42
DX: R07.89 Other chest pain (principal); I10 Essential (primary) hypertension; K21.9 Gastro-esophageal reflux disease without esophagitis; G89.29 Other chronic pain; Z87.440 Personal history of urinary (tract) infections; Z86.19 Personal history of other infectious and parasitic diseases; Z90.49 Acquired absence of other specified parts of digestive tract; Z72.89 Other problems related to lifestyle; Z56.0 Unemployment, unspecified; Z88.0 Allergy status to penicillin; Z88.1 Allergy status to other antibiotic agents; Z88.2 Allergy status to sulfonamides; Z88.6 Allergy status to analgesic agent; Z88.8 Allergy status to other drugs, medicaments and biological substances; Z79.899 Other long term (current) drug therapy
CPT/HCPCS: 36415; 80053; 81001; 81025; 83690; 84484; 85025; 93005; 99284

== ENCOUNTER 2020-08-01 06:26 | Emergency (ER) | payer MEDICAID ==
[~2020-08-01] VITALS: Ht 162.6 cm; Wt 145.4 kg
[~2020-08-01 06:26] MED LIST changes: +LISI40TA13 PO; -LISI40TA4 PO
[2020-08-01 06:29] VITALS: BP 134/98
[2020-08-01] MEDS ORDERED: PROP10TA10 PO (06:53)
[2020-08-01] MEDS ORDERED: BUSP10TA11 PO (06:55)
[2020-08-01] MEDS ORDERED: ketorolac tromethamine 15mg/ml inj. IM ONE (07:00)
[2020-08-01] MEDS ORDERED: diazepam inj 5 MG/ML inj. IM ONE (07:00)
[2020-08-01] MEDS ORDERED: ONDA8TAB65 PO (07:14)
[2020-08-01] MEDS ORDERED: VITA80008 PO (07:14)
[2020-08-01] MEDS ORDERED: PHYT100T PO (07:14)
[2020-08-01] MEDS ORDERED: OLAN5TAB5 PO (07:14)
[2020-08-01] MEDS ORDERED: PANT-47 PO (07:14)
[2020-08-01] MEDS ORDERED: BUPR200T2 PO (07:14)
[2020-08-01] MEDS ORDERED: TOPI25TA15 PO (07:14)
[2020-08-01] MEDS ORDERED: LISI20TA28 PO (07:14)
== END 2020-08-01 07:30 | disposition home or self-care (01) ==
LOC: ER 06:28
DX: M54.5 Low back pain (principal); I10 Essential (primary) hypertension; K21.9 Gastro-esophageal reflux disease without esophagitis; G89.29 Other chronic pain; F41.9 Anxiety disorder, unspecified; F31.9 Bipolar disorder, unspecified; F20.9 Schizophrenia, unspecified; Z87.440 Personal history of urinary (tract) infections; Z90.49 Acquired absence of other specified parts of digestive tract; Z98.890 Other specified postprocedural states; Z72.89 Other problems related to lifestyle; Z56.0 Unemployment, unspecified; Z88.5 Allergy status to narcotic agent; Z88.1 Allergy status to other antibiotic agents; Z88.2 Allergy status to sulfonamides; Z88.0 Allergy status to penicillin; Z88.6 Allergy status to analgesic agent; Z88.8 Allergy status to other drugs, medicaments and biological substances; Z91.018 Allergy to other foods; Z79.899 Other long term (current) drug therapy
CPT/HCPCS: 96372; 99284; J1885; J3360

== ENCOUNTER 2020-12-03 11:48 | Emergency (ER) | payer MEDICAID ==
[~2020-12-03] VITALS: Ht 162.6 cm; Wt 147.0 kg
[~2020-12-03 11:48] MED LIST changes: -BUPR150T8 PO; +BUPR200T2 PO; +LISI20TA28 PO; -LISI40TA13 PO; -NITR100C6 PO; +OLAN5TAB5 PO; -ONDA4TAB6 PO; -ONDA8TAB13 PO; +ONDA8TAB65 PO; +PANT-47 PO; -PANT40TA54 PO; +PHYT100T PO; -PHYT500T PO; +PROP10TA10 PO; +TOPI25TA15 PO
[2020-12-03 13:26] LABS: BASOPHILS % (AUTO) 0.3 % (0-1); EOSINOPHILS % (AUTO) 0 % (0-6); HEMATOCRIT 40.9 % (35.0-45.0); HEMOGLOBIN 14.2 g/dl (12.0-16.0); LYMPHOCYTES # (AUTO) 1.4 X10'3 (1.1-4.8); LYMPHOCYTES % (AUTO) 19.9 % (21-51); MEAN CORPUSCULAR HEMOGLOBIN 29.9 PG (27.0-31.0); MEAN CORPUSCULAR HGB CONC 34.8 g/dL (33.0-36.5); MEAN CORPUSCULAR VOLUME 86.1 FL (78-98); MONOCYTES # (AUTO) 0.6 X10'3 (0-0.9); MONOCYTES % (AUTO) 9.1 % (2-12); NEUTROPHILS % (AUTO) 70.7 % (42-75); PLATELET COUNT 270 X10'3 (140-440); RED BLOOD COUNT 4.76 X10'6 (4.20-5.60); RED CELL DISTRIBUTION WIDTH 13.3 % (11.5-14.5); WHITE BLOOD COUNT 7.1 X10'3 (4.5-11.0)
[2020-12-03 13:42] LABS: ALANINE AMINOTRANSFERASE 33 U/L (12-78); ALBUMIN 3.7 G/DL (3.4-5.0); ALBUMIN/GLOBULIN RATIO 1.1 (1.1-1.5); ALKALINE PHOSPHATASE 99 IU/L (46-116); ANION GAP 10 (8-16); ASPARTATE AMINO TRANSFERASE 15 U/L (10-37); BILIRUBIN,TOTAL 0.4 MG/DL (0.1-1.0); BLOOD UREA NITROGEN 17 MG/DL (7-18); BUN/CREATININE RATIO 14.7 (6.6-38.0); CALCIUM 8.3 MG/DL (8.5-10.1); CHLORIDE 108 MMOL/L (99-107); CREATININE 1.16 MG/DL (0.40-0.90); GLUCOSE 114 MG/DL (70-104); POTASSIUM 4.4 MMOL/L (3.5-5.1); SODIUM 143 MMOL/L (135-145); TOTAL CARBON DIOXIDE 25.3 MMOL/L (24-32); TOTAL PROTEIN 7.1 G/DL (6.4-8.2); eGFR 51 ML/MIN
[2020-12-03 13:49] LABS: MAGNESIUM 2.2 MG/DL (1.5-2.4)
[2020-12-03] MEDS ORDERED: acetaminophen 325mg tablet PO ONE (14:35)
[2020-12-03 14:52] VITALS: BP 119/97
== END 2020-12-03 14:58 | disposition home or self-care (01) ==
LOC: ER 11:49
DX: S13.9XXA Sprain of joints and ligaments of unspecified parts of neck, initial encounter (principal); R55 Syncope and collapse; I10 Essential (primary) hypertension; K21.9 Gastro-esophageal reflux disease without esophagitis; G89.29 Other chronic pain; Z86.19 Personal history of other infectious and parasitic diseases; K59.00 Constipation, unspecified; Z87.440 Personal history of urinary (tract) infections; Z80.49 Family history of malignant neoplasm of other genital organs; Z56.0 Unemployment, unspecified; Z88.0 Allergy status to penicillin; Z88.1 Allergy status to other antibiotic agents; Z88.2 Allergy status to sulfonamides; Z88.6 Allergy status to analgesic agent; Z88.8 Allergy status to other drugs, medicaments and biological substances; Z91.018 Allergy to other foods; Z79.899 Other long term (current) drug therapy; W18.39XA Other fall on same level, initial encounter; Y93.H2 Activity, gardening and landscaping; Y92.007 Garden or yard of unspecified non-institutional (private) residence as the place of occurrence of the external cause; Y99.8 Other external cause status
CPT/HCPCS: 36415; 70450; 71045; 72125; 80053; 82948; 83735; 83880; 84484; 85025; 93005; 99285

== ENCOUNTER 2021-10-09 07:55 | Emergency (ER) | payer MEDICAID ==
[~2021-10-09] VITALS: Ht 162.6 cm; Wt 156.2 kg
[~2021-10-09 07:55] MED LIST changes: +ONDA-104 PO; -ONDA8TAB65 PO; +VITA800012 PO; -VITA80008 PO
[2021-10-09 08:10] VITALS: BP 133/95
== END 2021-10-09 09:34 | disposition left against medical advice (07) ==
LOC: ER 07:56
DX: R10.9 Unspecified abdominal pain (principal); R11.10 Vomiting, unspecified; Z53.21 Procedure and treatment not carried out due to patient leaving prior to being seen by health care provider

== ENCOUNTER 2022-07-13 17:16 | Emergency (ER) | payer MEDICAID ==
[~2022-07-13] VITALS: Ht 162.6 cm; Wt 149.0 kg
[2022-07-13 17:59] VITALS: BP 148/74
[2022-07-13] MEDS ORDERED: ONDA4TAB12 PO (18:32)
[2022-07-13] MEDS ORDERED: LACT1CAP76 PO (18:32)
== END 2022-07-13 18:42 | disposition home or self-care (01) ==
LOC: ER 17:17
DX: R11.2 Nausea with vomiting, unspecified (principal); T36.8X6A Underdosing of other systemic antibiotics, initial encounter; I10 Essential (primary) hypertension; K21.9 Gastro-esophageal reflux disease without esophagitis; G89.29 Other chronic pain; F41.9 Anxiety disorder, unspecified; F32.A Depression, unspecified; F20.9 Schizophrenia, unspecified; Z91.138 Patient's unintentional underdosing of medication regimen for other reason; Y92.89 Other specified places as the place of occurrence of the external cause; Z88.5 Allergy status to narcotic agent; Z88.1 Allergy status to other antibiotic agents; Z88.0 Allergy status to penicillin; Z88.2 Allergy status to sulfonamides; Z90.49 Acquired absence of other specified parts of digestive tract; Z56.0 Unemployment, unspecified; Z88.8 Allergy status to other drugs, medicaments and biological substances
CPT/HCPCS: 99283

== ENCOUNTER 2022-09-19 17:13 | Emergency (ER) | payer MEDICAID ==
[~2022-09-19] VITALS: Ht 162.6 cm; Wt 148.0 kg
[~2022-09-19 17:13] MED LIST changes: +LACT1CAP76 PO; +ONDA4TAB12 PO
[2022-09-19 17:33] VITALS: BP 137/84
[2022-09-19 18:01] LABS: CLARITY,URINE SLIGHTLY CLOUDY (Clear); COLOR,URINE YELLOW (Yellow); GLUCOSE, URINE NEGATIVE (Neg); KETONES,URINE NEGATIVE (Neg); LEUKOCYTE ESTERASE ,URINE TRACE (Neg); NITRITES, URINE NEGATIVE (Neg); OCCULT BLOOD,URINE NEGATIVE (Neg); PROTEIN,URINE NEGATIVE (Neg); UROBILINOGEN,URINE 0.2 E.U/dL (0.2-1.0)
[2022-09-19 18:03] LABS: UA COLLECTION TYPE CLN CATCH MIDSTREAM
[2022-09-19 18:07] LABS: BASOPHILS % (AUTO) 0.4 % (0-1); EOSINOPHILS % (AUTO) 0.1 % (0-6); HEMATOCRIT 42.1 % (35.0-45.0); HEMOGLOBIN 14.2 g/dl (12.0-16.0); LYMPHOCYTES # (AUTO) 1.8 X10'3 (1.1-4.8); LYMPHOCYTES % (AUTO) 22.5 % (21-51); MEAN CORPUSCULAR HEMOGLOBIN 29.2 PG (27.0-31.0); MEAN CORPUSCULAR HGB CONC 33.7 g/dL (33.0-36.5); MEAN CORPUSCULAR VOLUME 86.5 FL (78-98); MEAN PLATELET VOLUME 7.4 FL (7.4-10.4); MONOCYTES # (AUTO) 0.8 X10'3 (0-0.9); MONOCYTES % (AUTO) 10.3 % (2-12); NEUTROPHILS # (AUTO) 5.2 X10'3 (1.8-7.7); NEUTROPHILS % (AUTO) 66.7 % (42-75); PLATELET COUNT 264 X10'3 (140-440); RED BLOOD COUNT 4.87 X10'6 (4.20-5.60); RED CELL DISTRIBUTION WIDTH 13.7 % (11.5-14.5); WHITE BLOOD COUNT 7.8 X10'3 (4.5-11.0)
[2022-09-19 18:07] LABS: URINE HCG NEGATIVE (NEG)
[2022-09-19 18:11] LABS: SQUAMOUS EPITHELIAL CELL,UR MODERATE /LPF (FEW)
[2022-09-19 18:14] LABS: BACTERIA,URINE 1+ /HPF (Neg); RBC,URINE NONE SEEN /HPF (0-2); WBC,URINE 0-4 /HPF (0-4)
[2022-09-19 18:40] LABS: ANION GAP 10 (8-16); BILIRUBIN,TOTAL 0.2 MG/DL (0.1-1.0); BLOOD UREA NITROGEN 25 MG/DL (7-18); BUN/CREATININE RATIO 19.5 (10.0-20.0); CHLORIDE 107 MMOL/L (99-107); CREATININE 1.28 MG/DL (0.40-0.90); GLUCOSE 129 MG/DL (70-104); POTASSIUM 4.1 MMOL/L (3.5-5.1); SODIUM 141 MMOL/L (135-145); TOTAL CARBON DIOXIDE 23.8 MMOL/L (24-32); eGFR 45 ML/MIN
[2022-09-19 18:41] LABS: ALANINE AMINOTRANSFERASE 28 U/L (12-78); ALBUMIN 3.9 G/DL (3.4-5.0); ALBUMIN/GLOBULIN RATIO 1.1 (1.1-1.5); ALKALINE PHOSPHATASE 89 IU/L (46-116); ASPARTATE AMINO TRANSFERASE 15 U/L (10-37); LIPASE 75 U/L (73-393); TOTAL PROTEIN 7.3 G/DL (6.4-8.2)
[2022-09-19] MEDS ORDERED: ONDA8TAB13 PO (21:07)
[2022-09-19] MEDS ORDERED: LOPE2CAP PO (21:07)
[2022-09-19] MEDS ORDERED: ondansetron 4mg rapidly disintigrating tab PO ONE (21:10)
== END 2022-09-19 21:34 | disposition home or self-care (01) ==
LOC: ER 17:13
DX: K52.9 Noninfective gastroenteritis and colitis, unspecified (principal); I10 Essential (primary) hypertension; K21.9 Gastro-esophageal reflux disease without esophagitis; G89.29 Other chronic pain; F31.9 Bipolar disorder, unspecified; F20.9 Schizophrenia, unspecified; F41.9 Anxiety disorder, unspecified; Z90.49 Acquired absence of other specified parts of digestive tract; Z98.890 Other specified postprocedural states; Z72.89 Other problems related to lifestyle; Z56.0 Unemployment, unspecified; Z88.2 Allergy status to sulfonamides; Z88.5 Allergy status to narcotic agent; Z88.1 Allergy status to other antibiotic agents; Z79.899 Other long term (current) drug therapy; Z91.018 Allergy to other foods
CPT/HCPCS: 36415; 80053; 81001; 81025; 83690; 85025; 87088; 99283

== ENCOUNTER 2023-03-29 10:24 | Emergency (ER) | payer MEDICAID ==
[~2023-03-29] VITALS: Ht 162.6 cm; Wt 145.7 kg
[~2023-03-29 10:24] MED LIST changes: +LOPE2CAP PO; +ONDA8TAB13 PO
[2023-03-29 10:39] VITALS: BP 139/94; PULSE 74; RESP 18; TEMP 97.8; O2SAT 99
== END 2023-03-29 11:55 | disposition home or self-care (01) ==
LOC: ER 10:25
DX: M23.8X1 Other internal derangements of right knee (principal); I10 Essential (primary) hypertension; G89.29 Other chronic pain; Z72.89 Other problems related to lifestyle; Z56.0 Unemployment, unspecified; Z90.49 Acquired absence of other specified parts of digestive tract; Z91.018 Allergy to other foods; Z88.2 Allergy status to sulfonamides; Z88.0 Allergy status to penicillin; Z88.8 Allergy status to other drugs, medicaments and biological substances; Z79.899 Other long term (current) drug therapy
CPT/HCPCS: 73564; 99283

== ENCOUNTER 2023-04-05 08:14 | Emergency (ER) | payer MEDICAID ==
[~2023-04-05] VITALS: Ht 165.1 cm; Wt 145.2 kg
[2023-04-05 09:04] LABS: BASOPHILS % (AUTO) 0.4 % (0-1); EOSINOPHILS % (AUTO) 0 % (0-6); HEMATOCRIT 41.7 % (35.0-45.0); HEMOGLOBIN 13.8 g/dl (12.0-16.0); LYMPHOCYTES # (AUTO) 1.4 X10'3 (1.1-4.8); LYMPHOCYTES % (AUTO) 19.4 % (21-51); MEAN CORPUSCULAR HEMOGLOBIN 27.9 PG (27.0-31.0); MEAN CORPUSCULAR HGB CONC 33.1 g/dL (33.0-36.5); MEAN CORPUSCULAR VOLUME 84.2 FL (78-98); MEAN PLATELET VOLUME 7.1 FL (7.4-10.4); MONOCYTES # (AUTO) 0.6 X10'3 (0-0.9); MONOCYTES % (AUTO) 8.5 % (2-12); NEUTROPHILS # (AUTO) 5.1 X10'3 (1.8-7.7); NEUTROPHILS % (AUTO) 71.7 % (42-75); PLATELET COUNT 311 X10'3 (140-440); RED BLOOD COUNT 4.96 X10'6 (4.20-5.60); RED CELL DISTRIBUTION WIDTH 13.4 % (11.5-14.5); WHITE BLOOD COUNT 7.2 X10'3 (4.5-11.0)
[2023-04-05 09:11] LABS: URINE HCG NEGATIVE (NEG)
[2023-04-05 09:21] LABS: ALANINE AMINOTRANSFERASE 24 U/L (12-78); ALBUMIN 3.8 G/DL (3.4-5.0); ALBUMIN/GLOBULIN RATIO 1.1 (1.1-1.5); ALKALINE PHOSPHATASE 109 IU/L (46-116); ANION GAP 9 (8-16); ASPARTATE AMINO TRANSFERASE 17 U/L (10-37); BILIRUBIN,TOTAL 0.5 MG/DL (0.1-1.0); BLOOD UREA NITROGEN 21 MG/DL (7-18); BUN/CREATININE RATIO 17.5 (10.0-20.0); CALCIUM 9.2 MG/DL (8.5-10.1); CHLORIDE 105 MMOL/L (99-107); GLUCOSE 116 MG/DL (70-104); LIPASE 20 U/L (16-77); SODIUM 140 MMOL/L (135-145); TOTAL CARBON DIOXIDE 25.6 MMOL/L (24-32); TOTAL PROTEIN 7.3 G/DL (6.4-8.2); eCRCL 52 ML/MIN; eGFR 48 ML/MIN
[2023-04-05 09:22] LABS: BILIRUBIN,URINE NEGATIVE (Neg); CLARITY,URINE SLIGHTLY CLOUDY (Clear); COLOR,URINE YELLOW (Yellow); GLUCOSE, URINE NEGATIVE (Neg); KETONES,URINE NEGATIVE (Neg); LEUKOCYTE ESTERASE ,URINE NEGATIVE (Neg); NITRITES, URINE NEGATIVE (Neg); OCCULT BLOOD,URINE NEGATIVE (Neg); PROTEIN,URINE NEGATIVE (Neg); UROBILINOGEN,URINE 0.2 E.U/dL (0.2-1.0)
[2023-04-05 09:30] LABS: UA COLLECTION TYPE CLN CATCH MIDSTREAM
[2023-04-05 09:31] LABS: BACTERIA,URINE 1+ /HPF (Neg); SQUAMOUS EPITHELIAL CELL,UR FEW /LPF (FEW)
[2023-04-05 09:32] LABS: RBC,URINE 0-2 /HPF (0-2); WBC,URINE 0-4 /HPF (0-4)
[2023-04-05] MEDS ORDERED: ketorolac trometh. 30mg/ml inj. IV ONE (10:55)
[2023-04-05] MEDS ORDERED: ondansetron 4mg rapidly disintigrating tab PO ONE (10:55)
--- NOTE | 2023-04-05 12:07 | NUR ---
NOTIFIED DR CONLEY THAT PT IS STILL NAUSEAOUS AND BELCHING , PER MD VERBAL ORDER TO GIVE ZOFRAN 4 MG IV ONCE AND PROTONIX 40 MG IV ONCE.
[2023-04-05] MEDS ORDERED: pantoprazole 40MG/NS 100ML BAG 100 ML IV ONE (12:10)
[2023-04-05] MEDS ORDERED: ondansetron/PF 4mg/2ml inj IV ONE (12:10)
[2023-04-05] MEDS ORDERED: normal saline 1000ml 1,000 ML IV ONE (12:55)
[2023-04-05] MEDS ORDERED: ONDA8TAB13 PO (13:50)
[2023-04-05] MEDS ORDERED: NITR100C6 PO (13:50)
[2023-04-05 14:47] VITALS: BP 143/88; PULSE 69; RESP 15; TEMP 97.8; O2SAT 100
== END 2023-04-05 14:54 | disposition home or self-care (01) ==
LOC: ER 08:15
DX: S39.012A Strain of muscle, fascia and tendon of lower back, initial encounter (principal); R30.0 Dysuria; K29.70 Gastritis, unspecified, without bleeding; I10 Essential (primary) hypertension; K21.9 Gastro-esophageal reflux disease without esophagitis; F31.9 Bipolar disorder, unspecified; Z88.8 Allergy status to other drugs, medicaments and biological substances; Z88.5 Allergy status to narcotic agent; Z88.1 Allergy status to other antibiotic agents; Z88.4 Allergy status to anesthetic agent; Z88.0 Allergy status to penicillin; Z88.2 Allergy status to sulfonamides; Z79.899 Other long term (current) drug therapy; Z90.49 Acquired absence of other specified parts of digestive tract; X58.XXXA Exposure to other specified factors, initial encounter; Y93.89 Activity, other specified; Y92.89 Other specified places as the place of occurrence of the external cause; Y99.8 Other external cause status
CPT/HCPCS: 36415; 74176; 80053; 81001; 81025; 83690; 85025; 96365; 96375; 99285; C9113; J1885; J2405; J7030

== ENCOUNTER 2023-09-07 09:00 | Emergency (ER) | payer MEDICAID ==
[~2023-09-07] VITALS: Ht 162.6 cm; Wt 135.9 kg
[~2023-09-07 09:00] MED LIST changes: +NITR100C6 PO
[2023-09-07 09:22] VITALS: TEMP 97.8
[2023-09-07] MEDS ORDERED: bismuth subsalicylate 262mg chew tablet PO STA (09:22)
[2023-09-07] MEDS ORDERED: bismuth subsalicylate 262mg/15ml oral suspension PO STA (09:33)
[2023-09-07 11:01] LABS: BASOPHILS % (AUTO) 0.3 % (0-1); EOSINOPHILS % (AUTO) 0 % (0-6); HEMATOCRIT 40.2 % (35.0-45.0); HEMOGLOBIN 13.4 g/dl (12.0-16.0); LYMPHOCYTES # (AUTO) 0.8 X10'3 (1.1-4.8); LYMPHOCYTES % (AUTO) 11.4 % (21-51); MEAN CORPUSCULAR HEMOGLOBIN 27.2 PG (27.0-31.0); MEAN CORPUSCULAR HGB CONC 33.2 g/dL (33.0-36.5); MEAN CORPUSCULAR VOLUME 81.8 FL (78-98); MEAN PLATELET VOLUME 6.9 FL (7.4-10.4); MONOCYTES # (AUTO) 0.4 X10'3 (0-0.9); NEUTROPHILS % (AUTO) 82.3 % (42-75); PLATELET COUNT 346 X10'3 (140-440); RED BLOOD COUNT 4.91 X10'6 (4.20-5.60); RED CELL DISTRIBUTION WIDTH 14.3 % (11.5-14.5); WHITE BLOOD COUNT 7.3 X10'3 (4.5-11.0)
[2023-09-07] MEDS: dicyclomine 10 MG capsule PO ONE (11:12)
[2023-09-07] MEDS: meclizine 12.5mg tablet PO ONE (11:12)
[2023-09-07] MEDS: ondansetron 4mg rapidly disintigrating tab PO ONE (11:13)
[2023-09-07] MEDS: normal saline 500ml IV soln 500 ML IV ONE (11:18)
[2023-09-07 11:19] LABS: APTT 30 SECONDS (22-32); INR 1.1 INR
[2023-09-07 11:30] LABS: ALANINE AMINOTRANSFERASE 18 U/L (12-78); ALBUMIN 3.3 G/DL (3.4-5.0); ALBUMIN/GLOBULIN RATIO 0.8 (1.1-1.5); ALKALINE PHOSPHATASE 120 IU/L (46-116); ANION GAP 10 (8-16); ASPARTATE AMINO TRANSFERASE 10 U/L (10-37); BILIRUBIN,TOTAL 0.3 MG/DL (0.1-1.0); BLOOD UREA NITROGEN 15 MG/DL (7-18); BUN/CREATININE RATIO 14.4 (10.0-20.0); CHLORIDE 108 MMOL/L (99-107); CREATININE 1.04 MG/DL (0.40-0.90); FREE T4 (FREE THYROXINE) 1.35 NG/DL (0.73-1.40); GLUCOSE 139 MG/DL (70-104); MAGNESIUM 2.2 MG/DL (1.5-2.4); POTASSIUM 4.3 MMOL/L (3.5-5.1); PRO BRAIN NATRIURETIC PEPTIDE 144 PG/ML (0-125); SODIUM 144 MMOL/L (135-145); THYROID STIMULATING HORMONE 0.66 ulU/ml (0.34-4.50); TOTAL CARBON DIOXIDE 25.7 MMOL/L (24-32); TOTAL PROTEIN 7.6 G/DL (6.4-8.2); eCRCL 57 ML/MIN; eGFR 57 ML/MIN
[2023-09-07] MEDS: bismuth subsalicylate 262mg/15ml oral suspension PO STA (11:51)
[2023-09-07 11:52] LABS: HCG SERUM QL NEGATIVE
[2023-09-07] MEDS ORDERED: ONDA4TAB12 PO (11:52)
[2023-09-07 12:03] LABS: BILIRUBIN,URINE NEGATIVE (Neg); CLARITY,URINE CLOUDY (Clear); COLOR,URINE YELLOW (Yellow); GLUCOSE, URINE NEGATIVE (Neg); KETONES,URINE NEGATIVE (Neg); LEUKOCYTE ESTERASE ,URINE TRACE (Neg); NITRITES, URINE NEGATIVE (Neg); OCCULT BLOOD,URINE NEGATIVE (Neg); PROTEIN,URINE NEGATIVE (Neg); UROBILINOGEN,URINE 0.2 E.U/dL (0.2-1.0)
[2023-09-07 12:06] LABS: UA COLLECTION TYPE CLN CATCH MIDSTREAM
[2023-09-07 12:10] VITALS: BP 148/88; PULSE 81; RESP 18; O2SAT 98
[2023-09-07 12:11] LABS: BACTERIA,URINE 1+ /HPF (Neg); RBC,URINE NONE SEEN /HPF (0-2); SQUAMOUS EPITHELIAL CELL,UR FEW /LPF (FEW)
== END 2023-09-07 12:12 | disposition home or self-care (01) ==
LOC: ER 09:01
DX: K52.9 Noninfective gastroenteritis and colitis, unspecified (principal); E86.0 Dehydration; R42 Dizziness and giddiness; K21.9 Gastro-esophageal reflux disease without esophagitis; I10 Essential (primary) hypertension; F41.9 Anxiety disorder, unspecified; F32.A Depression, unspecified; F20.9 Schizophrenia, unspecified; Z98.890 Other specified postprocedural states; Z72.89 Other problems related to lifestyle; Z56.0 Unemployment, unspecified
CPT/HCPCS: 36415; 70450; 71045; 80053; 81001; 83735; 83880; 84439; 84443; 84484; 84703; 85025; 85610; 85730; 87088; 96360; 99285; J7040; J8597

== ENCOUNTER 2023-12-05 17:05 | Emergency (ER) | payer MEDICAID ==
[~2023-12-05] VITALS: Ht 162.6 cm; Wt 134.9 kg
[2023-12-05 17:05] VITALS: BP 145/84; PULSE 74; TEMP 98.8; O2SAT 93
[~2023-12-05 17:05] MED LIST changes: +ONDA-243 PO; +ONDA-245 PO; -ONDA4TAB12 PO; -ONDA8TAB13 PO
[2023-12-05] MEDS ORDERED: AMOX-117 PO (18:19)
[2023-12-05] MEDS ORDERED: CARB15DR91 RIGHT EAR (18:19)
[2023-12-05 18:32] VITALS: RESP 18
== END 2023-12-05 18:33 | disposition home or self-care (01) ==
LOC: ER 17:05
DX: H66.93 Otitis media, unspecified, bilateral (principal); H61.23 Impacted cerumen, bilateral; I10 Essential (primary) hypertension; K21.9 Gastro-esophageal reflux disease without esophagitis; F31.9 Bipolar disorder, unspecified; Z88.8 Allergy status to other drugs, medicaments and biological substances; Z88.5 Allergy status to narcotic agent; Z88.6 Allergy status to analgesic agent; Z88.0 Allergy status to penicillin; Z88.1 Allergy status to other antibiotic agents; Z88.2 Allergy status to sulfonamides; Z79.2 Long term (current) use of antibiotics; Z79.899 Other long term (current) drug therapy; Z90.49 Acquired absence of other specified parts of digestive tract
CPT/HCPCS: 99283

== ENCOUNTER 2024-03-15 11:09 | Emergency (ER) | payer MEDICAID ==
[~2024-03-15] VITALS: Ht 162.6 cm; Wt 131.4 kg
[~2024-03-15 11:09] MED LIST changes: +CARB15DR91 RIGHT EAR
[2024-03-15 12:06] LABS: BASOPHILS % (AUTO) 0.3 % (0-1); EOSINOPHILS % (AUTO) 0 % (0-6); HEMATOCRIT 40.2 % (35.0-45.0); HEMOGLOBIN 13.3 g/dl (12.0-16.0); LYMPHOCYTES # (AUTO) 1.4 X10'3 (1.1-4.8); LYMPHOCYTES % (AUTO) 17.3 % (21-51); MEAN CORPUSCULAR HEMOGLOBIN 27.4 PG (27.0-31.0); MEAN CORPUSCULAR HGB CONC 33.1 g/dL (33.0-36.5); MEAN CORPUSCULAR VOLUME 82.7 FL (78-98); MEAN PLATELET VOLUME 7.2 FL (7.4-10.4); MONOCYTES # (AUTO) 0.8 X10'3 (0-0.9); MONOCYTES % (AUTO) 9.5 % (2-12); NEUTROPHILS % (AUTO) 72.9 % (42-75); PLATELET COUNT 328 X10'3 (140-440); RED BLOOD COUNT 4.86 X10'6 (4.20-5.60); RED CELL DISTRIBUTION WIDTH 14.4 % (11.5-14.5); WHITE BLOOD COUNT 8.2 X10'3 (4.5-11.0)
[2024-03-15 12:31] LABS: ALANINE AMINOTRANSFERASE 42 U/L (12-78); ALBUMIN 3.2 G/DL (3.4-5.0); ALBUMIN/GLOBULIN RATIO 0.8 (1.1-1.5); ALKALINE PHOSPHATASE 179 IU/L (46-116); AMYLASE 32 U/L (25-115); ANION GAP 7 (8-16); ASPARTATE AMINO TRANSFERASE 53 U/L (10-37); BILIRUBIN,TOTAL 0.5 MG/DL (0.1-1.0); BLOOD UREA NITROGEN 21 MG/DL (7-18); BUN/CREATININE RATIO 20.4 (10.0-20.0); CALCIUM 8.4 MG/DL (8.5-10.1); CHLORIDE 108 MMOL/L (99-107); CREATININE 1.03 MG/DL (0.40-0.90); GLUCOSE 95 MG/DL (70-104); LIPASE 19 U/L (16-77); POTASSIUM 4.3 MMOL/L (3.5-5.1); SODIUM 140 MMOL/L (135-145); TOTAL CARBON DIOXIDE 24.9 MMOL/L (24-32); TOTAL PROTEIN 7.1 G/DL (6.4-8.2); eCRCL 57 ML/MIN; eGFR 57 ML/MIN
[2024-03-15] MEDS: mag hydrox/Alum hydrox/simeth 30ml oral suspension PO ONE (12:41)
[2024-03-15] MEDS: LIDOcaine 2% Viscous 15ml cup MM PRN (12:41)
[2024-03-15] MEDS: ondansetron 4mg rapidly disintigrating tab PO ONE (12:42)
[2024-03-15 13:05] LABS: URINE HCG NEGATIVE (NEG)
[2024-03-15] MEDS ORDERED: OMEP40CA21 PO (13:07)
[2024-03-15 13:08] LABS: BILIRUBIN,URINE NEGATIVE (Neg); CLARITY,URINE CLEAR (Clear); COLOR,URINE YELLOW (Yellow); GLUCOSE, URINE NEGATIVE (Neg); KETONES,URINE NEGATIVE (Neg); LEUKOCYTE ESTERASE ,URINE NEGATIVE (Neg); NITRITES, URINE NEGATIVE (Neg); OCCULT BLOOD,URINE NEGATIVE (Neg); PROTEIN,URINE NEGATIVE (Neg); UROBILINOGEN,URINE 0.2 E.U/dL (0.2-1.0)
[2024-03-15 13:09] LABS: UA COLLECTION TYPE CLN CATCH MIDSTREAM
[2024-03-15 13:20] VITALS: BP 132/76; PULSE 69; RESP 18; TEMP 98; O2SAT 98
== END 2024-03-15 13:21 | disposition home or self-care (01) ==
LOC: ER 11:11
DX: K21.9 Gastro-esophageal reflux disease without esophagitis (principal); I10 Essential (primary) hypertension; F20.9 Schizophrenia, unspecified; G89.29 Other chronic pain; M54.9 Dorsalgia, unspecified; F32.A Depression, unspecified; Z88.8 Allergy status to other drugs, medicaments and biological substances; Z88.1 Allergy status to other antibiotic agents; Z88.0 Allergy status to penicillin; Z88.2 Allergy status to sulfonamides; Z88.5 Allergy status to narcotic agent; Z90.49 Acquired absence of other specified parts of digestive tract; Z98.890 Other specified postprocedural states; Z79.899 Other long term (current) drug therapy; Z56.0 Unemployment, unspecified; Z72.89 Other problems related to lifestyle; Z20.822 Contact with and (suspected) exposure to COVID-19
CPT/HCPCS: 36415; 80053; 81003; 81025; 82150; 83690; 85025; 87811; 99284

== ENCOUNTER 2024-05-11 03:34 | Emergency (ER) | payer MEDICAID ==
[~2024-05-11] VITALS: Ht 162.6 cm; Wt 131.4 kg
[2024-05-11] MEDS ORDERED: iohexol 300mg/ml 100ml inj. ONE (04:38)
[2024-05-11 06:08] VITALS: BP 150/87; PULSE 87; RESP 16; TEMP 98.2; O2SAT 96
== END 2024-05-11 06:09 | disposition home or self-care (01) ==
LOC: ER 03:35
DX: M79.645 Pain in left finger(s) (principal); F20.9 Schizophrenia, unspecified; F31.9 Bipolar disorder, unspecified; G89.29 Other chronic pain; I10 Essential (primary) hypertension; K21.9 Gastro-esophageal reflux disease without esophagitis; Z88.0 Allergy status to penicillin; Z88.1 Allergy status to other antibiotic agents; Z88.2 Allergy status to sulfonamides; Z88.5 Allergy status to narcotic agent; Z88.8 Allergy status to other drugs, medicaments and biological substances; Z90.49 Acquired absence of other specified parts of digestive tract; Z87.440 Personal history of urinary (tract) infections; W22.03XA Walked into furniture, initial encounter; Y93.89 Activity, other specified; Y92.89 Other specified places as the place of occurrence of the external cause; Y99.8 Other external cause status
CPT/HCPCS: 73140; 73201; 99285; Q9967

== ENCOUNTER 2024-06-05 17:57 | Emergency (ER) | payer MEDICAID ==
[~2024-06-05] VITALS: Ht 162.6 cm; Wt 133.2 kg
[2024-06-05 18:19] VITALS: BP 129/103; PULSE 82; TEMP 97.8; O2SAT 96
[2024-06-05] MEDS ORDERED: MELO-102 PO (19:26)
[2024-06-05 19:39] VITALS: RESP 18
[2024-06-05] MEDS: ketorolac trometh 30MG/ML vial 30 MG/ML VIAL IM STA (19:39)
== END 2024-06-05 19:42 | disposition home or self-care (01) ==
LOC: ER 17:58
DX: M79.645 Pain in left finger(s) (principal); M20.032 Swan-neck deformity of left finger(s); K21.9 Gastro-esophageal reflux disease without esophagitis; I10 Essential (primary) hypertension; F41.9 Anxiety disorder, unspecified; F31.9 Bipolar disorder, unspecified; F20.9 Schizophrenia, unspecified; Z88.5 Allergy status to narcotic agent; Z88.2 Allergy status to sulfonamides; Z88.1 Allergy status to other antibiotic agents; Z88.0 Allergy status to penicillin; Z88.8 Allergy status to other drugs, medicaments and biological substances; Z90.49 Acquired absence of other specified parts of digestive tract; Z98.890 Other specified postprocedural states
CPT/HCPCS: 96372; 99283; J1885; 29130

== ENCOUNTER 2024-10-04 14:41 | Emergency (ER) | payer MEDICAID ==
[~2024-10-04] VITALS: Ht 162.6 cm; Wt 104.0 kg
[~2024-10-04 14:41] MED LIST changes: +MELO-102 PO
[2024-10-04 15:05] VITALS: TEMP 97.6
--- NOTE | 2024-10-04 15:10 | Physician Documentation ---
History of Present Illness ~ Chief Complaint: Urinary Symptoms Stated Complaint: URINARY COMPLICATIONS Time Seen by MD: 17:13 Primary Medical Doctor: ESTEPHANIA FAIR This is a 49-year-old female presents to the ED with a complaint of urinary symptoms including pelvic pain that radiates to her back for the past three days, patient reports pain is worse urinates, however patient reports no dysuria, abnormal vaginal discharge, or vaginal discomfort. States she has not felt febrile or has not tested herself, states she does have a history of urinary tract infection. Patient reports she started her menstrual period four days ago. Patient additionally reports she has been experiencing vertigo for the past three days which is consistent with her previous vertigo symptoms vertigo is triggered when she moves her head quickly either moving from lying down to sitting up or sitting up to sleep lying down, patient reports he was previously prescribed a medication that helped with this however she is out of and she is unsure what the medication was called. Additionally Reports nausea vomiting, with nausea worse when vertigo symptoms increased. Day of Onset: October 04, 2024 Medication Reconciliation Allergies: Coded Allergies: cyclobenzaprine (Verified Allergy, Intermediate, 10/04/24) morphine (Verified Allergy, Intermediate, 10/04/24) norethindrone (Verified Allergy, Intermediate, "psych issues", 10/04/24) diclofenac (Verified Allergy, Mild, rash, 10/04/24) levofloxacin (Unverified Allergy, Mild, rash, 10/04/24) lidocaine (Verified Allergy, Mild, rash, 10/04/24) Cephalexin Monohydrate (Verified Allergy, Unknown, 05/11/24) Haloperidol Lactate (Verified Allergy, Unknown, 05/11/24) Penicillins (Verified Allergy, Unknown, 05/11/24) Phenytoin Sodium Extended (Verified Allergy, Unknown, 05/11/24) Sulfa (Sulfonamide Antibiotics) (Verified Allergy, Unknown, 05/11/24) acetaminophen (Verified Allergy, Unknown, 05/11/24) aripiprazole (Verified Allergy, Unknown, 05/11/24) cariprazine (Verified Allergy, Unknown, 05/11/24) clonazepam (Verified Allergy, Unknown, 05/11/24) codeine (Verified Allergy, Unknown, 05/11/24) divalproex sodium (Verified Allergy, Unknown, 05/11/24) doxycycline (Verified Allergy, Unknown, RASH, 05/11/24) escitalopram oxalate (Verified Allergy, Unknown, 05/11/24) fluoxetine HCl (Verified Allergy, Unknown, 05/11/24) haloperidol (Verified Allergy, Unknown, 05/11/24) lorazepam (Verified Allergy, Unknown, 05/11/24) lurasidone HCl (Verified Allergy, Unknown, 05/11/24) penicillin V (Verified Allergy, Unknown, 05/11/24) phenytoin sodium (Verified Allergy, Unknown, 05/11/24) prednisone (Verified Allergy, Unknown, 05/11/24) prochlorperazine edisylate (Verified Allergy, Unknown, 05/11/24) prochlorperazine maleate (Verified Allergy, Unknown, 05/11/24) promethazine HCl (Verified Allergy, Unknown, 05/11/24) ranitidine (Verified Allergy, Unknown, 05/11/24) soy (Verified Allergy, Unknown, 05/11/24) strawberry (Verified Allergy, Unknown, 05/11/24) sucralfate (Verified Allergy, Unknown, 05/11/24) trazodone (Verified Allergy, Unknown, 05/11/24) valproic acid (Verified Allergy, Unknown, 05/11/24) ziprasidone HCl (Verified Allergy, Unknown, 05/11/24) ziprasidone mesylate (Verified Allergy, Unknown, 05/11/24) Uncoded Allergies: LEVAQUINE (Allergy, Unknown, 06/05/24) Scheduled Bupropion Hcl (Wellbutrin Sr), 1 TAB PO Q12H, (Reported) Buspirone Hcl* (Buspar*), 3 TAB PO TID, (Reported) Carbamide Peroxide (Debrox), 5 DROP RIGHT EAR Q12H Cholecalciferol (Vitamin D3) (Vitamin D3), 2 TAB PO DAILY, (Reported) Clonazepam* (Klonopin*), 1 MG PO QID, (Reported) Lactobacillus Casei/Folic Acid (Restora Rx Capsule), 1 CAP PO DAILY Lisinopril (Lisinopril), 0.5 TAB PO DAILY, (Reported) Loperamide Hcl (Loperamide), 2 CAP PO Q6H Loratadine (Loratadine), 10 MG PO DAILY, (Reported) Meclizine HCl (Meclizine HCl), 1 TAB PO TID PRN Melatonin (Melatonin), 1 TAB PO HS, (Reported) Meloxicam (Meloxicam), 1 TAB PO DAILY Nitrofurantoin Monohyd/M-Cryst (Macrobid 100 mg Capsule), 1 CAP PO Q12H Nortriptyline HCl (Nortriptyline HCl), 4 CAP PO HS, (Reported) Olanzapine (Olanzapine), 20 MG PO HS, (Reported) Olanzapine* (Zyprexa Zydis Odt*), 1 TAB PO DAILY, (Reported) Ondansetron 8mg ODT (Ondansetron Odt), 1 TAB PO Q8H Ondansetron 8mg ODT (Ondansetron Odt), 1 TAB PO Q6H Ondansetron HCl (Ondansetron HCl), 1 TAB PO BID, (Reported) Pantoprazole Sodium (PROTONIX tablet), 1 TAB PO BID, (Reported) Phytonadione (Vitamin K), 1 TAB PO DAILY, (Reported) Propranolol Hcl* (Inderal*), 1 TAB PO BID, (Reported) Topiramate (Topamax), 2 TAB PO Q12H, (Reported) Vitamin A (Vitamin A), 2,400 MCG PO DAILY, (Reported) Scheduled PRN Docusate Sodium (Dok), 100 MG PO HS PRN for constipation, (Reported) ONDANSETRON ODT 4mg tablet (Ondansetron Odt), 1 TABLET PO Q6H PRN for nausea/vomiting ONDANSETRON ODT 4mg tablet (Ondansetron Odt), 1 TAB PO Q6H PRN PRN for nausea/vomiting Past Medical History Past Medical History: Hypertension, Constipation, GERD, Hernia, UTI, Chronic Back Pain, Herpes Zoster, *PSYCH*, Anxiety, Bipolar, Depression, Schizophrenia Past Surgical History: cholecystectomy, orthopedic surgeries Alcohol Use: Occasionally Drug Use: none Lives with: Spouse, Family Lives In: Home Occupation: unemployed Review of Systems ROS Suprapubic pain as stated above in the HPI, otherwise all systems are reviewed and negative. Physical Exam Vital Signs: Temperature: 97.6, Source: Temporal, Heart Rate: 84, Respiratory Rate: 15, BP: 145/78, Pulse Oximetry: 96, Weight: 104.000 Physical Exam VITALS: Reviewed and as above. GENERAL: Alert, nontoxic appearing, no apparent distress. RESPIRATORY: No increased work of breathing, no respiratory distress, speaking in full clear sentences CV: Regular rate and rhythm BACK: No CVA tenderness GI: Nondistended, suprapubic tenderness, no rebound, no guarding, no rigidity Progress Results/Orders Results/Orders Orders - WILLIE YEPEZ DIMENSIONAL ENGINEER Ultrasound Pelvis W/Orwo Dplx (10/04/24 17:28) Completed Orders - WILLIE YEPEZ DIMENSIONAL ENGINEER Ultrasound Pelvis W/Orwo Dplx (10/04/24 17:28) Meclizine Tablets (Antivert Tablet) (10/04/24 17:30) Ondansetron Disint. Tablet (Zofran Odt T (10/04/24 17:30) Ketorolac Trometh 15mg/Ml Vial (Toradol (10/04/24 18:35) Vital Signs 10/04/24 10/04/24 10/04/24 10/04/24 15:05 17:41 17:43 18:55 Temp 97.6 Pulse 84 88 Resp 15 20 20 17 B/P (MAP) 145/78 139/80 (99) Pulse Ox 96 98 10/04/24 19:18 Pulse 66 Resp 18 B/P (MAP) 144/83 Pulse Ox 100 Laboratory Tests Test 10/04/24 15:20 10/04/24 15:39 Urine Specimen Description Cln catch midstream Urine Color Yellow Urine Clarity Clear Urine pH 6.0 Urine Specific [place] <=1.005 Urine Protein Negative Urine Glucose (UA) Negative Urine Ketones Negative Urine Occult Blood Negative Urine Nitrite Negative Urine Bilirubin Negative Urine Urobilinogen 0.2 Urine Leukocyte Esterase Negative Urine Culture Indicated Not ind Volume Urine Centrifuged 10 ml Urine HCG, Qualitative Negative Urine Comment White Blood Count 7.3 Red Blood Count 4.66 Hemoglobin 13.0 Hematocrit 38.4 Mean Corpuscular Volume 82.4 Mean Corpuscular Hemoglobin 27.8 Mean Corpuscular Hemoglobin Concent 33.7 Red Cell Distribution Width 14.3 Platelet Count 280 Mean Platelet Volume 6.8 L Neutrophils (%) (Auto) 67.3 Lymphocytes (%) (Auto) 22.5 Monocytes (%) (Auto) 9.8 Eosinophils (%) (Auto) 0.1 Basophils (%) (Auto) 0.3 Neutrophils # (Auto) 4.9 Lymphocytes # (Auto) 1.7 Monocytes # (Auto) 0.7 Eosinophils # (Auto) 0.0 Basophils # (Auto) 0.0 CBC Comment Sodium Level 145 Potassium Level 4.2 Chloride Level 110 H Carbon Dioxide Level 25.1 Anion Gap 10 Blood Urea Nitrogen 18 Creatinine 0.97 H Estimated GFR/1.73 m2 61 BUN/Creatinine Ratio 18.6 Glucose Level 100 Calcium Level 8.8 Total Bilirubin 0.4 Aspartate Amino Transf (AST/SGOT) 19 Alanine Aminotransferase (ALT/SGPT) 24 Alkaline Phosphatase 111 Total Protein 6.9 Albumin 3.6 Globulin 3.3 Albumin/Globulin Ratio 1.1 Lipase 18 Chemistry Comments EKG/XRAY/CT/US/VASC/MRI Ultrasound : Impression PELVIC ULTRASOUND WITH TRANSABDOMINAL AND TRANSVAGINAL IMAGING CLINICAL HISTORY: Pelvic Pain COMPARISON: None. TECHNIQUE: Transabdominal grayscale, color-flow Doppler, and duplex Doppler was performed. FINDINGS: Uterus: The uterus measures 7.3 x 3.1 x 4.9 cm. Uterine myometrium is grossly unremarkable. Endometrium: Double thickness of the endometrial stripe measures 0.2 cm. Endometrial thickness is uniform. The right ovary measures 3.3 x 2.9 x 2.6 cm. The left ovary measures 3.5 x 2.2 by 3.0 cm. Both ovaries demonstrate dopplerable blood flow on spectral analysis. No free fluid identified in the cul-de-sac. IMPRESSION: No acute findings as visualized. Electronically Signed by:JUAN ANDINO MD Date & Time: 10/04/241835 Dictated by: JUAN ANDINO MD Dictation date and time: 10/04/241835 Medical Decision Making Findings This 49-year-old female presented with pain to her suprapubic abdomen with radiation to her back along with vertigo symptoms consistent with her previous vertigo symptoms that she has run out of medications for. Of note patient is on her menstrual cycle, urinalysis did not demonstrate evidence of urinary tract infection, and physical exam was relatively benign with minimal tenderness to the abdomen. Ultrasound of the pelvis was obtained without abnormality. I have low suspicion for serious intra abdominal abnormality. It is reassuring patient responded well to meclizine for vertigo. Patient medicated for pain with decrease in symptoms. Remainder of physical exam benign and patient vital signs stable, patient is appropriate for outpatient follow up. Return precautions discussed with the patient who verbalized understanding. Urinary Diff Dx:Considerations: Include: Appendicitis, Bowel obstruction, Ectopic , Intrauterine , Ovarian torsion, Pyelonephritis, Urolithiasis, UTI Departure Disposition: 01 HOME / SELF CARE / HOMELESS Impression: Primary Impression: Vertigo Additional Impression: Nonspecific abdominal pain Condition: Improved Discharge Instructions: Benign Positional Vertigo Additional Instructions: It is reassuring your vertigo symptoms have improved, your labs and ultrasound did not show any abnormality including no evidence of a UTI, it is possible that your symptoms may be related to a menstrual cycle. If your symptoms change or get worse please return to the emergency department. Please use the prescribed meclizine if vertigo returns. Please follow up with your primary care provider in the next few days. Please return to the emergency department for any new or worsening concerning symptoms. Referrals: NO PRIMARY CARE PROVIDER (PCP) Prescriptions Meclizine HCl (Meclizine HCl) 25 Mg Tablet 1 TAB PO TID PRN for 10 Days, #30 TAB Prov: WILLIE YEPEZ 10/04/24 Education Educated: Patient Educated regarding: diagnosis, treatment, prognosis, need for follow up Signature Scribe Signature: No scribe Attestation: The note accurately reflects work and decisions made by me.Maryellen Moreno NP 10/04/24 18:21 The note accurately reflects work and decisions made by me.ZAINAB Kraft 10/05/24 04:23 MARYELLEN GREEN NP October 04, 2024 15:10 WILLIE YEPEZ October 04, 2024 17:28
[2024-10-04 15:46] LABS: BILIRUBIN,URINE NEGATIVE (Neg); CLARITY,URINE CLEAR (Clear); COLOR,URINE YELLOW (Yellow); GLUCOSE, URINE NEGATIVE (Neg); KETONES,URINE NEGATIVE (Neg); LEUKOCYTE ESTERASE ,URINE NEGATIVE (Neg); NITRITES, URINE NEGATIVE (Neg); OCCULT BLOOD,URINE NEGATIVE (Neg); PROTEIN,URINE NEGATIVE (Neg); UROBILINOGEN,URINE 0.2 E.U/dL (0.2-1.0)
[2024-10-04 15:48] LABS: URINE HCG NEGATIVE (NEG)
[2024-10-04 15:57] LABS: UA COLLECTION TYPE CLN CATCH MIDSTREAM
[2024-10-04 15:59] LABS: BASOPHILS % (AUTO) 0.3 % (0-1); EOSINOPHILS % (AUTO) 0.1 % (0-6); HEMATOCRIT 38.4 % (35.0-45.0); LYMPHOCYTES # (AUTO) 1.7 X10'3 (1.1-4.8); LYMPHOCYTES % (AUTO) 22.5 % (21-51); MEAN CORPUSCULAR HEMOGLOBIN 27.8 PG (27.0-31.0); MEAN CORPUSCULAR HGB CONC 33.7 g/dL (33.0-36.5); MEAN CORPUSCULAR VOLUME 82.4 FL (78-98); MEAN PLATELET VOLUME 6.8 FL (7.4-10.4); MONOCYTES # (AUTO) 0.7 X10'3 (0-0.9); MONOCYTES % (AUTO) 9.8 % (2-12); NEUTROPHILS # (AUTO) 4.9 X10'3 (1.8-7.7); NEUTROPHILS % (AUTO) 67.3 % (42-75); PLATELET COUNT 280 X10'3 (140-440); RED BLOOD COUNT 4.66 X10'6 (4.20-5.60); RED CELL DISTRIBUTION WIDTH 14.3 % (11.5-14.5); WHITE BLOOD COUNT 7.3 X10'3 (4.5-11.0)
[2024-10-04 16:20] LABS: ALANINE AMINOTRANSFERASE 24 U/L (12-78); ALBUMIN 3.6 G/DL (3.4-5.0); ALBUMIN/GLOBULIN RATIO 1.1 (1.1-1.5); ALKALINE PHOSPHATASE 111 IU/L (46-116); ANION GAP 10 (8-16); ASPARTATE AMINO TRANSFERASE 19 U/L (10-37); BILIRUBIN,TOTAL 0.4 MG/DL (0.1-1.0); BLOOD UREA NITROGEN 18 MG/DL (7-18); BUN/CREATININE RATIO 18.6 (10.0-20.0); CALCIUM 8.8 MG/DL (8.5-10.1); CHLORIDE 110 MMOL/L (99-107); CREATININE 0.97 MG/DL (0.40-0.90); GLUCOSE 100 MG/DL (70-104); LIPASE 18 U/L (16-77); POTASSIUM 4.2 MMOL/L (3.5-5.1); SODIUM 145 MMOL/L (135-145); TOTAL CARBON DIOXIDE 25.1 MMOL/L (24-32); TOTAL PROTEIN 6.9 G/DL (6.4-8.2); eCRCL 61 ML/MIN; eGFR 61 ML/MIN
[2024-10-04] MEDS: ondansetron 4mg rapidly disintigrating tab PO ONE (17:39)
[2024-10-04] MEDS: meclizine 12.5mg tablet PO ONE (17:39)
--- NOTE | 2024-10-04 18:38 | RADIOLOGY REPORT ---
PELVIC ULTRASOUND WITH TRANSABDOMINAL AND TRANSVAGINAL IMAGING CLINICAL HISTORY: Pelvic Pain COMPARISON: None. TECHNIQUE: Transabdominal grayscale, color-flow Doppler, and duplex Doppler was performed. FINDINGS: Uterus: The uterus measures 7.3 x 3.1 x 4.9 cm. Uterine myometrium is grossly unremarkable. Endometrium: Double thickness of the endometrial stripe measures 0.2 cm. Endometrial thickness is uni form. The right ovary measures 3.3 x 2.9 x 2.6 cm. The left ovary measures 3.5 x 2.2 by 3.0 cm. Both ovari es demonstrate dopplerable blood flow on spectral analysis. No free fluid identified in the cul-de-sac. IMPRESSION: No acute findings as visualized.
[2024-10-04] MEDS: ketorolac trometh 15mg/ml vial 15 MG/ML ML IM ONE (18:55)
[2024-10-04] MEDS ORDERED: MECL-302 PO (19:03)
[2024-10-04 19:18] VITALS: BP 144/83; PULSE 66; RESP 18; O2SAT 100
== END 2024-10-04 19:19 | disposition home or self-care (01) ==
LOC: ER 14:42
DX: R10.2 Pelvic and perineal pain (principal); R42 Dizziness and giddiness; F20.9 Schizophrenia, unspecified; F31.9 Bipolar disorder, unspecified; F41.9 Anxiety disorder, unspecified; I10 Essential (primary) hypertension; Z88.0 Allergy status to penicillin; Z88.1 Allergy status to other antibiotic agents; Z88.2 Allergy status to sulfonamides; Z88.5 Allergy status to narcotic agent; Z88.8 Allergy status to other drugs, medicaments and biological substances; Z90.49 Acquired absence of other specified parts of digestive tract
CPT/HCPCS: 36415; 76856; 80053; 81003; 81025; 83690; 85025; 93976; 96372; 99285; J1885; J8597

== ENCOUNTER 2025-01-19 09:18 | Emergency (ER) | payer MEDICAID ==
[~2025-01-19] VITALS: Ht 162.6 cm; Wt 133.9 kg
[~2025-01-19 09:18] MED LIST changes: +CLOT30CR19 TOP; +MECL-302 PO
[2025-01-19 09:30] VITALS: BP 140/76; PULSE 54; RESP 16; O2SAT 97
--- NOTE | 2025-01-19 09:49 | Physician Documentation ---
History of Present Illness ~ Chief Complaint: Head Pain Stated Complaint: HEAD PAIN Time Seen by MD: 09:38 OK to notify your PCP?: Yes Primary Medical Doctor: ESTEPHANIA Source: patient Mode of Arrival: POV Exam Limitations: no limitations HPI 49-year-old female with chief complaint pain on the right side of the back of her scalp after she hit her head on her refrigerator door last night. She took two tablets of Tylenol without any relief and decided to come to the ER because she needs something more than Tylenol for pain. She did not lose consciousness. She is not on blood thinners. Pain is localized to her scalp. Tetanus within 5 years?: Yes Medication Reconciliation Allergies: Coded Allergies: cyclobenzaprine (Verified Allergy, Intermediate, 11/27/24) morphine (Verified Allergy, Intermediate, 11/27/24) norethindrone (Verified Allergy, Intermediate, "psych issues", 11/27/24) diclofenac (Verified Allergy, Mild, rash, 11/27/24) levofloxacin (Unverified Allergy, Mild, rash, 11/27/24) lidocaine (Verified Allergy, Mild, rash, 11/27/24) Cephalexin Monohydrate (Verified Allergy, Unknown, 05/11/24) Haloperidol Lactate (Verified Allergy, Unknown, 05/11/24) Penicillins (Verified Allergy, Unknown, 05/11/24) Phenytoin Sodium Extended (Verified Allergy, Unknown, 05/11/24) Sulfa (Sulfonamide Antibiotics) (Verified Allergy, Unknown, 05/11/24) acetaminophen (Verified Allergy, Unknown, 05/11/24) aripiprazole (Verified Allergy, Unknown, 05/11/24) cariprazine (Verified Allergy, Unknown, 05/11/24) clonazepam (Verified Allergy, Unknown, 05/11/24) codeine (Verified Allergy, Unknown, 05/11/24) divalproex sodium (Verified Allergy, Unknown, 05/11/24) doxycycline (Verified Allergy, Unknown, RASH, 05/11/24) escitalopram oxalate (Verified Allergy, Unknown, 05/11/24) fluoxetine HCl (Verified Allergy, Unknown, 05/11/24) haloperidol (Verified Allergy, Unknown, 05/11/24) lorazepam (Verified Allergy, Unknown, 05/11/24) lurasidone HCl (Verified Allergy, Unknown, 05/11/24) penicillin V (Verified Allergy, Unknown, 05/11/24) phenytoin sodium (Verified Allergy, Unknown, 05/11/24) prednisone (Verified Allergy, Unknown, 05/11/24) prochlorperazine edisylate (Verified Allergy, Unknown, 05/11/24) prochlorperazine maleate (Verified Allergy, Unknown, 05/11/24) promethazine HCl (Verified Allergy, Unknown, 05/11/24) ranitidine (Verified Allergy, Unknown, 05/11/24) soy (Verified Allergy, Unknown, 05/11/24) strawberry (Verified Allergy, Unknown, 05/11/24) sucralfate (Verified Allergy, Unknown, 05/11/24) trazodone (Verified Allergy, Unknown, 05/11/24) valproic acid (Verified Allergy, Unknown, 05/11/24) ziprasidone HCl (Verified Allergy, Unknown, 05/11/24) ziprasidone mesylate (Verified Allergy, Unknown, 05/11/24) Uncoded Allergies: LEVAQUINE (Allergy, Unknown, 06/05/24) Scheduled Bupropion Hcl (Wellbutrin Sr), 1 TAB PO Q12H, (Reported) Buspirone Hcl* (Buspar*), 3 TAB PO TID, (Reported) Carbamide Peroxide (Debrox), 5 DROP RIGHT EAR Q12H Cholecalciferol (Vitamin D3) (Vitamin D3), 2 TAB PO DAILY, (Reported) Clonazepam* (Klonopin*), 1 MG PO QID, (Reported) Clotrimazole (Clotrimazole), 1 APPLIC TOP Q12H Lactobacillus Casei/Folic Acid (Restora Rx Capsule), 1 CAP PO DAILY Lisinopril (Lisinopril), 0.5 TAB PO DAILY, (Reported) Loperamide Hcl (Loperamide), 2 CAP PO Q6H Loratadine (Loratadine), 10 MG PO DAILY, (Reported) Meclizine HCl (Meclizine HCl), 1 TAB PO TID PRN Melatonin (Melatonin), 1 TAB PO HS, (Reported) Meloxicam (Meloxicam), 1 TAB PO DAILY Nitrofurantoin Monohyd/M-Cryst (Macrobid 100 mg Capsule), 1 CAP PO Q12H Nortriptyline HCl (Nortriptyline HCl), 4 CAP PO HS, (Reported) Olanzapine (Olanzapine), 20 MG PO HS, (Reported) Olanzapine* (Zyprexa Zydis Odt*), 1 TAB PO DAILY, (Reported) Ondansetron 8mg ODT (Ondansetron Odt), 1 TAB PO Q8H Ondansetron 8mg ODT (Ondansetron Odt), 1 TAB PO Q6H Ondansetron HCl (Ondansetron HCl), 1 TAB PO BID, (Reported) Pantoprazole Sodium (PROTONIX tablet), 1 TAB PO BID, (Reported) Phytonadione (Vitamin K), 1 TAB PO DAILY, (Reported) Propranolol Hcl* (Inderal*), 1 TAB PO BID, (Reported) Topiramate (Topamax), 2 TAB PO Q12H, (Reported) Vitamin A (Vitamin A), 2,400 MCG PO DAILY, (Reported) Scheduled PRN Docusate Sodium (Dok), 100 MG PO HS PRN for constipation, (Reported) ONDANSETRON ODT 4mg tablet (Ondansetron Odt), 1 TABLET PO Q6H PRN for nausea/vomiting ONDANSETRON ODT 4mg tablet (Ondansetron Odt), 1 TAB PO Q6H PRN PRN for nausea/vomiting Past Medical History Past Medical History: Hypertension, Constipation, GERD, Hernia, UTI, Chronic Back Pain, Psoriasis, Herpes Zoster, *PSYCH*, Anxiety, Bipolar, Depression, Schizophrenia Past Surgical History: cholecystectomy, orthopedic surgeries Alcohol Use: Occasionally Drug Use: none Lives with: Spouse, Family Lives In: Home Occupation: unemployed Review of Systems All Other Systems at this time: Reviewed and Negative Physical Exam Vital Signs: Temperature: 97.5, Source: Temporal, Heart Rate: 54, Respiratory Rate: 16, BP: 140/76, Pulse Oximetry: 97, Weight: 133.900 Oxygen Flow Rate: 0 Physical Exam Skin: Right occipital and right parietal aspect of patient's scalp is where point identifies her pain is. In this area, there is no swelling or any sign of acute injury; however there is a thick silver plaque with an erythematous base with areas of excoriation this is tender to palpation patient also has plaques where her forehead meets her hairline but not as large. SPINE: No tenderness over cervical spinous processes, moving cervical spine around normally General Appearance: Alert, WD/WN. NAD. HEENT: NCAT, PERRL, EOMI. Neck: Supple, trachea midline. Lungs: Breathing unlabored Extremities: Normal inspection. No edema. Neurological: Alert and oriented x4, normal gait. Psychiatric: Affect congruent with mood. Progress Results/Orders Results/Orders Vital Signs 01/19/25 09:30 Temp 97.5 Pulse 54 Resp 16 B/P (MAP) 140/76 Pulse Ox 97 O2 Flow Rate 0 Medical Decision Making Differential Dx:Considerations: Include: Closed head injury, Cervical spine injury, Skull facture, Fracture, Abrasion, Contusion, Foreign body, Laceration, Intoxication-alcohol, Intoxication-other drug, Substance abuse disorder, Personality disorder, Non-accidental trauma, Other Additional Comment there is no concern for brain bleed-patient had no LOC, patient no on blood thinners. there is no concern for referred pain from cervical spine as exam of cervical spine is normal. no evidence of secondary infection at the area where she has psoriasis Departure Time of Disposition: 09:47 Disposition: 01 HOME / SELF CARE / HOMELESS Impression: Primary Impression: Psoriasis of scalp Additional Impression: Scalp pain Condition: Stable Discharge Instructions: Psoriasis, [id number] Additional Instructions: YOU HAVE NO RED FLAG SIGNS ON EXAM OR RED FLAG SYMPTOMS WITH YOUR HISTORY TO WARRANT ANY FURTHER WORKUP IN THE EMERGENCY ROOM. I SUSPECT THAT MOST OF YOUR PAIN IS ACTUALLY COMING FROM THE PSORIASIS THAT APPEARS INFLAMED AND YOU FURTHER AGGRAVATED THIS WHEN YOU HIT THIS AREA OF YOUR HEAD ON THE REFRIGERATOR DOOR. I RECOMMEND HE FOLLOW UP WITH YOUR PRIMARY CARE PROVIDER ABOUT GETTING INTO A HAIR BLENDER IF YOU DO NOT ALREADY HAVE A HAIR BLENDER CLEARLY THE PSORIASIS IS NOT WELL MANAGED; HOWEVER I DO NOT IDENTIFY ANY SECONDARY INFECTION AT THIS TIME BUT IF YOU DEVELOP FEVER, CHILLS, INCREASING PAIN IN HIS AREA RETURN TO THE ER I HAVE PRESCRIBED YOU SOME MEDICATION FOR THE PSORIASIS THAT YOU CAN TRY WHILE WAITING TO SEE YOUR PCP Referrals: NO PRIMARY CARE PROVIDER (PCP) Prescriptions Clobetasol Propionate (Clobetasol Propionate) 0.05 % Solution 1 APPLIC TOP Q12H for 30 Days, #59 ML 0 Refills apply to affected area(s) ON SCALP TWICE DAILY FOR 10DAYS Prov: TANGELA PEARCE 01/19/25 Education Educated: Patient Educated regarding: diagnosis, treatment, need for follow up Signature Scribe Signature: X Attestation: TANGELA HARDEN Jan 19, 2025 09:49
[2025-01-19] MEDS ORDERED: CLOB25SO14 TOP (09:51)
[2025-01-19] MEDS: ibuprofen tablet 400 MG TABLET PO ONE (09:55)
[2025-01-19 09:58] VITALS: TEMP 97.5
== END 2025-01-19 09:59 | disposition home or self-care (01) ==
LOC: ER 09:19
DX: L40.9 Psoriasis, unspecified (principal); F20.9 Schizophrenia, unspecified; F31.9 Bipolar disorder, unspecified; K21.9 Gastro-esophageal reflux disease without esophagitis; I10 Essential (primary) hypertension; F41.9 Anxiety disorder, unspecified; Z88.1 Allergy status to other antibiotic agents; Z88.2 Allergy status to sulfonamides; Z88.5 Allergy status to narcotic agent; Z88.0 Allergy status to penicillin; Z88.8 Allergy status to other drugs, medicaments and biological substances; Z90.49 Acquired absence of other specified parts of digestive tract; Z91.018 Allergy to other foods; Z79.899 Other long term (current) drug therapy; Z72.89 Other problems related to lifestyle; Z56.0 Unemployment, unspecified
CPT/HCPCS: 99283